=== PATIENT | female | born 1935 | race Caucasian/White ===

== ENCOUNTER 2018-09-08 22:56 | Inpatient (IN) ==
[2018-09-08 23:11] LABS: ABG Base Excess -4.7 mmol/L (-2.4-2.3); ABG HCO3 19.7 mmhg (22.0-26.0); ABG Oxygen Saturation 96 % (90-100); ABG PCO2 30.6 mmhg (35.0-45.0); ABG PH 7.43 mmol/L (7.35-7.45); ABG PO2 78.4 mmhg (80-100); ABG TCO2 20.6 mmhg (23-27)
[2018-09-08 23:12] LABS: Oxygen 21 %
[2018-09-08 23:13] LABS: Allen's Test Acceptable
[2018-09-08 23:17] LABS: Basophils # 0.1 K/mm3 (0-0.2); Basophils % 0.6 % (0.1-2.0); Eosinophils # 0.4 K/mm3 (0.0-0.4); Eosinophils % 2.7 % (0.1-12.0); Hematocrit 40.5 % (37.0-47.0); Hemoglobin 12.7 g/dL (12.2-16.2); Lymphocytes # 2.8 K/mm3 (0.7-4.5); Lymphocytes % 21.7 % (10-50); Mean Corpuscular HGB Conc 31.4 g/dL (31.8-35.4); Mean Corpuscular Hemoglobin 30.4 pg (27.0-31.2); Mean Platelet Volume 7.8 fl (7.4-10.4); Monocytes # 0.7 K/mm3 (0.1-1.0); Monocytes % 5.3 % (1.7-9.3); Neutrophils % 69.8 % (37.0-80.0); Platelet Count 234 K/mm3 (142-424); Red Blood Count 4.17 M/mm3 (4.20-5.40); Red Cell Distribution Width 15.8 % (11.5-17.5); White Blood Count 12.9 K/mm3 (4.8-10.8)
[2018-09-08 23:30] LABS: Alanine Aminotransferase 38 U/L (12-78); Albumin Level 3.2 gm/dL (3.4-5.0); Alkaline Phosphatase 87 U/L (46-116); Anion Gap 18.3 mEq/L (5-15); Aspartate Amino Transferase 34 U/L (15-37); Bilirubin,Direct 0.2 mg/dL (0.0-0.2); Bilirubin,Indirect 0.4 mg/dL (0.0-0.9); Bilirubin,Total 0.6 mg/dL (0.2-1.0); Blood Urea Nitrogen 19 mg/dL (7-18); C-Reactive Protein 2.6 mg/L (0.0-0.9); Calcium 8.7 mg/dL (8.5-10.1); Carbon Dioxide 20 mmol/L (21.0-32.0); Chloride 105 mmol/L (98-107); Glucose 160 mg/dL (74-106); Potassium 4.3 mmoL/L (3.5-5.1); Sodium 139 mmol/L (136-145); Total Protein,Serum 7.3 gm/dL (6.4-8.2)
[2018-09-08 23:41] LABS: Microscopic, Urine URINE MICROSCOPIC (MICROSCOPIC)
[2018-09-08 23:42] LABS: Appearance,Urine CLEAR (Clear); Bilirubin,Urine Negative (Negative); Blood, Urine Negative (Negative); Color,Urine YELLOW (Yellow); Glucose,Urine (UA) Negative (Negative); Ketones,Urine Negative (Negative); Leukocyte Esterase,Urine Negative (Negative); PH,Urine 5.5 (5.0-8.5); Protein,Urine Negative (Negative); Specific Gravity, Urine 1.015 (1.005-1.030); Urobilinogen,Urine 0.2 EU/dl (0.2)
[2018-09-08 23:54] LABS: Bacteria,Urine Trace /lpf; WBC,Urine Occasional #/hpf (0-3)
[2018-09-09 00:10] LABS: T4 (Thyroxine) 8.7 ug/dl (4.7-13.3); Thyroid Stimulating Hormone 0.83 uIU/ml (0.358-3.740)
[2018-09-09 00:56] LABS: INR 3.19 (0.9-1.1); Prothrombin Time 31.8 seconds (9.4-11.8)
[2018-09-09 01:28] LABS: Coronavirus 229E Not Detected (NotDetected); Coronavirus NL63 Not Detected (NotDetected); Coronavirus OC43 Not Detected (NotDetected); Coronovirus HKU1,PCR Not Detected (NotDetected)
--- NOTE | 2018-09-09 01:40 | Emergency Department Note ---
ED Disposition Clinical Impression: Atrial fibrillation with rapid ventricular response, Acute interstitial pneumonitis, Renal insufficiency, Obesity (BMI 30.0-34.9) Disposition: Admitted as Observation Condition on Discharge: Good - Critical Care Critical Care Time: No Attestation: On 09/08/18, the high probability of a clinically significant, sudden or life threatening deterioration of the following system(s) required my full and direct attention, intervention and personal management. The time I documented below is in addition to time spent performing reported procedures but includes the following listed in this critical care notation. Medical Decision Making - Medical Records Medical records reviewed: Yes: I reviewed the patient's medical records. - Anders Inquiry Pt receiving controlled substance: No Vital Signs: 09/08/18 22:57 09/08/18 23:04 09/08/18 23:26 Temperature 97.9 F Temperature Source Oral Pulse Rate [Right Brachial] 160 H 142 H 131 H Respiratory Rate 21 26 H 26 H Blood Pressure [Right Arm] 180/126 H 160/105 H 140/102 H Blood Pressure Mean [Right Arm] 144 123 114 02 Sat by Pulse Oximetry 94 L 92 L 98 Oxygen Delivery Method Room Air Room Air Nasal Cannula Oxygen Flow Rate (LPM) 2 09/08/18 23:49 09/09/18 00:30 09/09/18 01:07 Temperature Temperature Source Pulse Rate [Right Brachial] 122 H 93 H 91 H Respiratory Rate 16 23 21 Blood Pressure [Right Arm] 149/104 H 151/76 H 149/79 H Blood Pressure Mean [Right Arm] 119 101 102 02 Sat by Pulse Oximetry 96 95 95 Oxygen Delivery Method Nasal Cannula Nasal Cannula Nasal Cannula Oxygen Flow Rate (LPM) 2 2 2 09/09/18 01:14 Temperature Temperature Source Pulse Rate [Right Brachial] 88 Respiratory Rate 23 Blood Pressure [Right Arm] 148/75 H Blood Pressure Mean [Right Arm] 99 02 Sat by Pulse Oximetry 95 Oxygen Delivery Method Nasal Cannula Oxygen Flow Rate (LPM) 2 - Lab Data Lab results reviewed: Yes: I reviewed the patient's lab results. Lab Results 09/08/18 23:03: Specimen Source Left brachial, O2 % 21, ABG pH 7.43, ABG pCO2 30.6 L, ABG pO2 78.4 L, ABG HCO3 19.7 L, ABG Total CO2 20.6 L, ABG O2 Saturation 96, ABG Base Excess -4.7 L, Avtar Test Acceptable 09/08/18 23:05: WBC 12.9 H, RBC 4.17 L, Hgb 12.7, Hct 40.5, MCV 97.0, MCH 30.4, MCHC 31.4 L, RDW 15.8, Plt Count 234, MPV 7.8, Neut % (Auto) 69.8, Lymph % (Auto) 21.7, [place] % (Auto) 5.3, Eos % (Auto) 2.7, Baso % (Auto) 0.6, Neut # (Auto) 9.0 H, Lymph # (Auto) 2.8, [place] # (Auto) 0.7, Eos # (Auto) 0.4, Baso # (Auto) 0.1 09/08/18 23:05: Sodium 139, Potassium 4.3, Chloride 105, Carbon Dioxide 20 L, Anion Gap 18.3 H, BUN 19 H, Creatinine 1.72 H, Estimated Creat Clear 35, Estimated GFR 28 L, Est GFR ( Amer) 34 L, Glucose 160 H, Calcium 8.7, Total Bilirubin 0.6, Direct Bilirubin 0.2, Indirect Bilirubin 0.4, AST 34, ALT 38, Alkaline Phosphatase 87, Troponin I < 0.02, C-Reactive Protein 2.6 H, Total Protein 7.3, Albumin 3.2 L 09/08/18 23:05: ESR 40 H 09/08/18 23:05: TSH 0.83, Thyroxine (T4) 8.7 09/08/18 23:30: Urine Color Yellow, Urine Appearance Clear, Urine pH 5.5, Ur Specific Denn[place] 1.015, Urine Protein Negative, Urine Glucose (UA) Negative, Urine Ketones Negative, Urine Blood Negative, Urine Nitrate Negative, Urine Bilirubin Negative, Urine Urobilinogen 0.2, Ur Leukocyte Esterase Negative, Urine RBC None, Urine WBC Occasional, Ur Squamous Epith Cells 3-5, Urine Bacteria Trace 09/08/18 23:30: Influenza Type A Ag Negative, Influenza Type B Ag Negative 09/08/18 23:35: Lactate 3.3 H 09/09/18 00:00: PT 31.8 H, INR 3.19 H Result diagrams: 09/08/18 23:05 09/08/18 23:05 Orders (Tests/Meds): ED MEDICATIONS Generic Name Dose Route Start Last Admin Trade Name Nilesh PRN Reason Stop Dose Admin Diltiazem HCl 100 mg/ Sodium 100 mls @ 5 mls/hr 09/08/18 23:48 09/08/18 23:35 Chloride IV 10/08/18 23:47 Not Given .Q20H GABI Protocol Sodium Chloride 1,000 mls @ 250 mls/hr 09/08/18 23:45 09/08/18 23:35 Sod Chlor 0.9% 1000ml Bag IV 09/09/18 03:44 250 mls/hr .Q4H GABI Administration Ceftriaxone Sodium 1 gm/ 50 mls @ 100 mls/hr 09/09/18 01:15 09/09/18 01:26 Sodium Chloride IV 09/23/18 01:14 100 mls/hr Q24H GABI Administration Protocol Azithromycin 500 mg/ Sodium 250 mls @ 250 mls/hr 09/09/18 01:15 Chloride IV 09/23/18 01:14 Q24H GABI Protocol Levalbuterol HCl 1.25 mg 09/09/18 06:00 09/08/18 23:34 Xopenex 1.25mg/3ml Neb IH 10/09/18 05:59 1.25 mg TIDRT GABI Administration Discontinued Medications Generic Name Dose Route Start Last Admin Trade Name Nilesh PRN Reason Stop Dose Admin Diltiazem HCl 10 mg 09/08/18 23:32 09/08/18 23:34 Cardizem 25mg/5ml Vial IV 09/08/18 23:33 10 mg ONCE ONE Administration Diltiazem HCl 100 mg 09/08/18 23:32 09/08/18 23:34 Cardizem 125mg/25ml Vial IV 09/08/18 23:33 100 mg ONCE ONE Administration Protocol Furosemide 40 mg 09/09/18 01:16 09/09/18 01:26 Lasix 40mg/4ml Vial IV 09/09/18 01:17 40 mg ONCE ONE Administration Methylprednisolone Sodium Succinate 125 mg 09/08/18 23:03 09/08/18 23:33 Solu-Medrol 125mg/2ml Vial IV 09/08/18 23:04 125 mg ONCE ONE Administration ORDERS Category Date Time Status CT chest wo con Stat Cat Scan 09/09/18 00:[address] soft tissue neck wo con Stat Cat Scan 09/08/18 23:45 Taken XR chest portable Stat Exams 09/08/18 23:03 Taken Upper Respiratory Panel, PCR Stat Lab 09/09/18 01:15 Received Urinalysis and Microscopic Stat Lab 09/08/18 23:30 Ordered Blood Culture Stat Micro 09/08/18 23:35 Received Arterial Blood Gas Stat RT 09/08/18 23:03 Ordered 12-lead EKG Request [ECG Request by /Rachele] Stat Y 09/09/18 00:06 Ordered - Radiology Data #1 Image(s): Chest Image Reviewed: Yes I reviewed the patient's radiology image Preliminary Findings: Abnormal (nonspecific) - CT Data CT Scan: Chest, Other (neck ) Time Received: 01:[address] Reviewed: Yes: I have viewed the radiologist's interpretation Preliminary Findings: Abnormal (see report ) - Physician Consults Physician Consulted: antonio Reason -: Admission Resp/SOB HPI - General Chief Complaint: Shortness of Breath/Dyspnea Stated Complaint: shortness of iar Time Seen by Provider: 09/08/18 23:15 Mode of Arrival: EMS Source of Information: Patient, Relative, EMS ( ), Medical Record Limitations: No Limitations Description of Symptoms (Recalled from ER Triage Doc. by RN): Brought in by EMS for Shortness of air, tachycardia, and trouble swallowing. Pt with labored breathing at this time, hoarse, and gets very winded with speaking. - History of Present Illness wf with tickle in throat earlier which progressed to dysphonia and wheezing - no chest pain and was brought by ems and was noted to have a fib with fast rate - MD Complaint: shortness of breath Onset (ago): hour(s) Severity: moderate Known history of: other (hx of a fib ) Associated symptoms: other Treatment prior to arrival: oxygen, bronchodilator - Related Data Home oxygen amount: none Home Medications Medication Instructions Recorded Confirmed Allopurinol [Allopurinol 300mg 150 mg PO DAILY 09/08/18 09/08/18 tablet] Furosemide [Furosemide 20mg Tab] 20 mg PO DAILY 09/08/18 09/08/18 Irbesartan 150 mg PO DAILY 09/08/18 09/08/18 Levothyroxine Sodium 100 mg PO DAILY 09/08/18 09/08/18 [Levothyroxine 100mcg (0.1MG) Tab] Linagliptin/Metformin HCl 1 each PO BID 09/08/18 09/08/18 [Jentadueto 2.5 mg-1000 mg Tab] Metoprolol Tartrate 50 mg PO BID 09/08/18 09/08/18 Omeprazole [Omeprazole 40mg 40 mg PO DAILY 09/08/18 09/08/18 Capsule] Warfarin Sodium 2.5 mg PO DAILY 09/08/18 09/08/18 Allergies Allergy/AdvReac Type Severity Reaction Status Date / Time albuterol Allergy Severe Swelling Verified 09/08/18 23:37 of Lip/Tongue/Throat erythromycin base Allergy Severe Swelling Verified 09/08/18 23:37 of Lip/Tongue/Throat Penicillin Allergy Severe Swelling Uncoded 09/08/18 23:37 of Lip/Tongue/Throat [facility] History - Hepatitis A Screen Drug use history?: No High risk sexual behaviors?: No History of sexually transmitted infection?: No Currently employed?: No Childcare worker?: No Do you have indoor plumbing?: Yes Do you have electricity?: Yes Attestation statement:: This patient has been screened for Hepatitis A risk factors. I have reviewed the patient's past medical history: Yes Medical History: Reports:: Diabetes Mellitus Type 2 - Social History Alcohol Intake: never - Psychiatric History Expresses thoughts of harming self/others: None Suicide Plan Description: No Plan ROS Obtained: Yes All systems reviewed & no additional complaints - Constitutional Constitutional: Denies fever(s) - Eyes Eyes: Denies change in vision - ENT Ears, Nose, Mouth, and Throat: Reports as per HPI, Denies lip swelling, Denies sore throat - Cardiovascular Cardiovascular: Reports dyspnea, Reports rapid heart rate - Respiratory Respiratory: Yes cough, Yes dyspnea, No coughing up blood - Gastrointestinal Gastrointestingal: Denies: abdominal pain - Genitourinary Female Genitourinary: Denies abnormal vaginal bleeding - Musculoskeletal Musculoskeletal: Denies joint pain, Denies joint swelling - Integumentary/Breasts Skin/Breast: Denies rash - Neurologic Neurologic: Denies headache(s), Denies seizure-like activity Physical Exam - General General appearance: alert, obese - Head Head exam: normocephalic - Eye Eye exam: Present: PERRL, EOMI. Absent: scleral icterus - ENT ENT exam: Present: normal oropharynx, mucous membranes dry - Neck Neck exam: Absent: trachea midline - Respiratory Respiratory exam: Present: wheezes. Absent: respiratory distress - Cardiovascular Cardiovascular exam: Present: irregular rhythm, systolic murmur - Abdominal Exam Abdominal exam: Present: soft - Extremities Exam Extremities exam: Absent: tenderness, calf tenderness - Neurological Exam Neurological exam: Present: alert, oriented X3, CN II-XII intact - Psychiatric Psychiatric exam: Present: anxious - Skin Skin exam: Absent: rash
[2018-09-09 04:45] LABS: Basophils % 0.2 % (0.1-2.0); Eosinophils % 0.2 % (0.1-12.0); Hematocrit 38.9 % (37.0-47.0); Hemoglobin 12.2 g/dL (12.2-16.2); Lymphocytes # 0.6 K/mm3 (0.7-4.5); Lymphocytes % 5.2 % (10-50); Mean Corpuscular HGB Conc 31.3 g/dL (31.8-35.4); Mean Corpuscular Hemoglobin 30.6 pg (27.0-31.2); Mean Corpuscular Volume 97.8 fl (81-99); Mean Platelet Volume 7.6 fl (7.4-10.4); Monocytes # 0.2 K/mm3 (0.1-1.0); Monocytes % 1.8 % (1.7-9.3); Neutrophils # 10.9 K/mm3 (1.8-7.8); Neutrophils % 92.6 % (37.0-80.0); Platelet Count 194 K/mm3 (142-424); Red Blood Count 3.98 M/mm3 (4.20-5.40); Red Cell Distribution Width 15.8 % (11.5-17.5); White Blood Count 11.8 K/mm3 (4.8-10.8)
[2018-09-09 04:46] LABS: INR 3.81 (0.9-1.1); Prothrombin Time 37.8 seconds (9.4-11.8)
[2018-09-09 04:51] LABS: Calcium 8.5 mg/dL (8.5-10.1); Chol/HDL Ratio 3.4 (1-3.5)
[2018-09-09 06:22] LABS: Anisocytosis 1+; Lymphocytes % 2 % (10-50); Neutrophils % 98 % (42-76); Stomatocytes 1+; Total Cells Counted 100
--- NOTE | 2018-09-09 07:31 | Pharmacy Consult Notes ---
[facility] Pharmacy VTE Monitoring - Patient Demographics Admission date: 09/09/18 Report Date: 09/09/18 Time: 07:31 Allergies/Adverse Reactions: Patient Allergies albuterol Allergy (Severe, Verified 09/08/18 23:37) Swelling of Lip/Tongue/Throat erythromycin base Allergy (Severe, Verified 09/08/18 23:37) Swelling of Lip/Tongue/Throat Penicillin Allergy (Severe, Uncoded 09/08/18 23:37) Swelling of Lip/Tongue/Throat Height: 1.6 m Weight: 89.499 kg Patient Problems: Current Active Problems Atrial fibrillation with rapid ventricular response (Acute) Acute interstitial pneumonitis (Acute) Renal insufficiency (Acute) Obesity (BMI 30.0-34.9) (Acute) - VTE Risk Labs: VTE Related Lab Results Hgb 12.2 g/dL (12.2-16.2) 09/09/18 04:15 Hct 38.9 % (37.0-47.0) 09/09/18 04:15 Plt Count 194 K/mm3 (142-424) 09/09/18 04:15 PT 37.8 seconds (9.4-11.8) H 09/09/18 04:15 INR 3.81 (0.9-1.1) H 09/09/18 04:15 BUN 20 mg/dL (7-18) H 09/09/18 04:15 Creatinine 1.77 mg/dL (0.55-1.02) H 09/09/18 04:15 Estimated Creat Clear 34 mL/min (50-200) 09/09/18 04:15 Was VTE Risk Assessment Performed: Yes VTE Score: 6 VTE Risk Level: Moderate Risk - Prophylaxis VTE Prophylaxis Ordered?: Yes Types of VTE Prophylaxis: Pharmacological Pharmacologic Type: Warfarin - VTE Diagnosis Confirmed Treatment or plan recommended: Continue Current Treatment
--- NOTE | 2018-09-09 08:10 | Consult Report ---
History of Present Illness Consult date: 09/09/18 Requesting physician: Gordo Phillips Consult reason: shortness of breath Chief complaint: SOA Additional Medical History:: 1. Diabetes mellitus, treated for about 9 years 2. Hypertension 3. Hypothyroidism, on replacement therapy 4. Hyperlipidemia 5. History of gout and arthritis 6. History of atrial fibrillation remotely several years ago for which she has been on chronic Coumadin therapy since then History of present illness: 82-year-old white female with the above medical history presented to the emergency room for increasing shortness of breath and loss of voice. Patient relates rather sudden onset of shortness of breath with some difficulty talking and gradually progressed. Patient denies any chest pain, pressure or tightness. She had been in her normal state of health earlier that day doing her normal activities. She denies any new food choices. In the ER patient was found to be in atrial fibrillation with a rapid ventricular response and started on IV diltiazem. Patient was also started on pulmonary treatment with significant improvement overnight. Patient is wanting to go home today. Cardiology consulted for atrial fibrillation. Patient states she has been on Coumadin therapy several years without interruption. Current heart rate between 80-100 at rest with quick rise to 150's with minimal movement. She is on Diltiazem at 15 ml/hr currently. Coronary artery calcification noted on chest CT. Pt denies chest pains but with cardiac risk factors she will need further workup once pulmonary status improved. [facility] History Medical History: Reports:: Arrhythmia, Atrial Fibrillation, Diabetes Mellitus Type 2, Hyperlipidemia, Hypertension Laterality Cases: Right: ACL Repair, Bilateral: Cataract Other Surgeries: Yes: Tubal Ligation - *Social History Educational Level: Completed High School Alcohol Intake: never Occupational Status: retired Housing: apartment Household Members: none - Psychiatric History Expresses thoughts of harming self/others: None Suicide Plan Description: No Plan *Family Hx:: Asthma, Cancer, Coronary Artery Disease, Heart Attack Meds Home Medications Medication Instructions Recorded Confirmed Type Allopurinol [Allopurinol 300mg 150 mg PO DAILY 09/08/18 09/09/18 History tablet] Furosemide [Furosemide 20mg Tab] 20 mg PO DAILY 09/08/18 09/09/18 History Irbesartan 150 mg PO DAILY 09/08/18 09/09/18 History Levothyroxine Sodium 100 mcg PO DAILY 09/08/18 09/09/18 History [Levothyroxine 100mcg (0.1MG) Tab] Linagliptin/Metformin HCl 1 each PO BID 09/08/18 09/09/18 History [Jentadueto 2.5 mg-1000 mg Tab] Metoprolol Tartrate 50 mg PO BID 09/08/18 09/09/18 History Omeprazole [Omeprazole 40mg 40 mg PO DAILY 09/08/18 09/09/18 History Capsule] Warfarin Sodium 2.5 mg PO DAILY 09/08/18 09/09/18 History Allergies Allergy/AdvReac Type Severity Reaction Status Date / Time albuterol Allergy Severe Swelling Verified 09/08/18 23:37 of Lip/Tongue/Throat erythromycin base Allergy Severe Swelling Verified 09/08/18 23:37 of Lip/Tongue/Throat Penicillins Allergy Severe Swelling Verified 09/09/18 07:49 of Lip/Tongue/Throat Review of Systems - *Cardiovascular Reports shortness of breath, Reports fast heart rate, Denies chest pain - *Respiratory Reports shortness of breath - *Gastrointestinal Denies abdominal pain, Denies loose stools - *Genitourinary Denies difficulty urinating, Denies blood in urine - *Musculoskeletal Reports joint pain - *Neurologic Denies headache(s), Denies seizure-like activity Exam Vital signs and Labs for Last 24 Hours: Temp Pulse Resp BP Pulse Ox 98.3 F 72 24 137/81 98 09/09/18 04:00 09/09/18 07:26 09/09/18 06:00 09/09/18 06:00 09/09/18 07:26 Laboratory Results - last 24 hr 09/08/18 23:03: Specimen Source Left brachial, O2 % 21, ABG pH 7.43, ABG pCO2 30.6 L, ABG pO2 78.4 L, ABG HCO3 19.7 L, ABG Total CO2 20.6 L, ABG O2 Saturation 96, ABG Base Excess -4.7 L, Avtar Test Acceptable 09/08/18 23:05: WBC 12.9 H, RBC 4.17 L, Hgb 12.7, Hct 40.5, MCV 97.0, MCH 30.4, MCHC 31.4 L, RDW 15.8, Plt Count 234, MPV 7.8, Neut % (Auto) 69.8, Lymph % (Auto) 21.7, [place] % (Auto) 5.3, Eos % (Auto) 2.7, Baso % (Auto) 0.6, Neut # (Auto) 9.0 H, Lymph # (Auto) 2.8, [place]ton # (Auto) 0.7, Eos # (Auto) 0.4, Baso # (Auto) 0.1 09/08/18 23:05: Sodium 139, Potassium 4.3, Chloride 105, Carbon Dioxide 20 L, Anion Gap 18.3 H, BUN 19 H, Creatinine 1.72 H, Estimated Creat Clear 35, Estimated GFR 28 L, Est GFR ( Amer) 34 L, Glucose 160 H, Calcium 8.7, Total Bilirubin 0.6, Direct Bilirubin 0.2, Indirect Bilirubin 0.4, AST 34, ALT 38, Alkaline Phosphatase 87, Troponin I < 0.02, C-Reactive Protein 2.6 H, Total Protein 7.3, Albumin 3.2 L 09/08/18 23:05: ESR 40 H 09/08/18 23:05: TSH 0.83, Thyroxine (T4) 8.7 09/08/18 23:30: Urine Color Yellow, Urine Appearance Clear, Urine pH 5.5, Ur Specific Shiner 1.015, Urine Protein Negative, Urine Glucose (UA) Negative, Urine Ketones Negative, Urine Blood Negative, Urine Nitrate Negative, Urine Bilirubin Negative, Urine Urobilinogen 0.2, Ur Leukocyte Esterase Negative, Urine RBC None, Urine WBC Occasional, Ur Squamous Epith Cells 3-5, Urine Bacteria Trace 09/08/18 23:30: Influenza Type A Ag Negative, Influenza Type B Ag Negative 09/08/18 23:35: Lactate 3.3 H 09/09/18 00:00: PT 31.8 H, INR 3.19 H 09/09/18 00:00: B-Natriuretic Peptide 394 H 09/09/18 01:15: Chlamy pneumoniae PCR Not detected, Adenovirus (PCR) Not detected, B. pertussis DNA (PCR) Not detected, Coronavirus OC43 (PCR) Not detected, Coronavirus HKU1 (PCR) Not detected, Coronavirus 229E (PCR) Not detected, Coronavirus NL63 (PCR) Not detected, Human Metapneumovir PCR Not detected, Influenza A (H1) PCR Not detected, Influ A (H1N1/09) PCR Not detected, Influenza A (H3) PCR Not detected, Influenza Type A (PCR) Not detected, Influenza Type B (PCR) Not detected, M. pneumoniae (PCR) Not detected, Parainfluenza 1 (PCR) Not detected, Parainfluenza 2 (PCR) Not detected, Parainfluenza 3 (PCR) Not detected, Parainfluenza 4 (PCR) Not detected, RSV (PCR) Not detected, Entero/Rhino (PCR) Not detected 09/09/18 04:15: Troponin I < 0.02 09/09/18 04:15: WBC 11.8 H, RBC 3.98 L, Hgb 12.2, Hct 38.9, MCV 97.8, MCH 30.6, MCHC 31.3 L, RDW 15.8, Plt Count 194, MPV 7.6, Neut % (Auto) 92.6 H, Lymph % (Auto) 5.2 L, Charlton % (Auto) 1.8, Eos % (Auto) 0.2, Baso % (Auto) 0.2, Neut # (Auto) 10.9 H, Lymph # (Auto) 0.6 L, Charlton # (Auto) 0.2, Eos # (Auto) 0.0, Baso # (Auto) 0.0, Total Counted 100, Neutrophils % (Manual) 98 H, Lymphocytes % (Manual) 2 L, Platelet Estimate Normal, Anisocytosis 1+, Stomatocytes 1+ 09/09/18 04:15: PT 37.8 H, INR 3.81 H 09/09/18 04:15: Sodium 138, Potassium 4.0, Chloride 104, Carbon Dioxide 20 L, Anion Gap 18.0 H, BUN 20 H, Creatinine 1.77 H, Estimated Creat Clear 34, Estimated GFR 27 L, Est GFR ( Amer) 33 L, Glucose 234 H D, Calcium 8.5, Magnesium 1.0 L, Triglycerides 89, Cholesterol 176, LDL Cholesterol 106, VLDL Cholesterol 18, HDL Cholesterol 52, Cholesterol/HDL Ratio 3.4 09/09/18 04:15: Lactate 2.8 H 09/09/18 05:58: POC Glucose 221 H 09/09/18 06:30: Lactate 3.7 H I & O for Last 24 hours: Intake & Output 09/06/18 09/07/18 09/08/18 12/21/18 11:59 11:59 11:59 11:59 Intake Total 620 / 620 Output Total 1000 / 1000 Balance -380 / -380 Weight 197 lb 5 oz Microbiology Reports for the Last 24 Hours: Microbiology 09/09/18 04:30 Sputum - Expectorated Sputum Gram Stain - Final - *Routine Neck Exam Present: supple. Absent: JVD, carotid bruit - *Routine Respiratory Exam Present: rhonchi, wheezes. Absent: accessory muscle use, rales - *Routine Cardiovascular Exam Present: tachycardia, irregularly irregular. Absent: murmur, gallop, rubs - *Routine Abdominal Exam Present: soft. Absent: tenderness, distended, guarding - *Routine Extremities Exam Absent: edema, calf tenderness - *Routine Neurological Exam Present: alert, oriented X3, moving all extremities Assessment and Plan (1) Acute interstitial pneumonitis Current visit: Yes Status: Acute Category: Medical Code(s): J84.114 - Acute interstitial pneumonitis (2) Atrial fibrillation with rapid ventricular response Current visit: Yes Status: Acute Category: Medical Code(s): I48.91 - Unspecified atrial fibrillation (3) Diabetes mellitus Current visit: Yes Status: Acute Category: Medical Code(s): E11.9 - Type 2 diabetes mellitus without complications (4) Obesity (BMI 30.0-34.9) Current visit: Yes Status: Chronic Category: Medical Code(s): E66.9 - Obesity, unspecified (5) Renal insufficiency Current visit: Yes Status: Acute Category: Medical Code(s): N28.9 - Dis order of kidney and ureter, unspecified - Assessment and plan all Dx Assessment and Plan for all problems:: 1. We will give a one-time dose of digoxin 0.25 mg IV 2. We will start bisoprolol 10 mg up to twice daily for rate control in place of metoprolol. 3. We will hold irbesartan to allow for more beta-melony therapy but resume for BP control as needed. 4. Continue diltiazem and wean as needed 5. If the above therapy is not adequate for rate control then would consider cardioversion after pulmonary status has improved. Patient has eaten breakfast this morning. 6. Echocardiogram has been performed with preliminary interpretation showing preserved ejection fraction with moderate MR. 7. Suggest outpatient lexiscan or stress myoview when pulmonary status improved.
--- NOTE | 2018-09-09 08:27 | History & Physical Report ---
*Admission Date: 09/09/18 *Chief complaint: Shortness of air/cough *History of present illness: 82-year-old white female with history of hypertension, history of chronic atrial fibrillation on long-term warfarin therapy who I saw Wednesday in my office in [place] for regular checkup who was doing very nicely, with normal lung examination but reported that 2 days ago she began to have wheezing and shortness of air suddenly. Came to the emergency department, workup ensued which revealed evidence of significant bronchitis, mild hypoxia and some tachycardia. Patient was admitted for further evaluation. This morning she feels better but continues to have slightly rapid heart rate. [facility] History I have reviewed the patient's past medical history: Yes Medical History: Reports:: Arrhythmia, Atrial Fibrillation, Diabetes Mellitus Type 2, Hyperlipidemia, Hypertension Laterality Cases: Right: ACL Repair, Bilateral: Cataract Other Surgeries: Yes: Tubal Ligation - *Social History Educational Level: Completed High School Alcohol Intake: never Occupational Status: retired Housing: apartment Household Members: none - Psychiatric History Expresses thoughts of harming self/others: None Suicide Plan Description: No Plan *Family Hx:: Asthma, Cancer, Coronary Artery Disease, Heart Attack Review of Systems - Review of Systems Review of systems:: pertinent systems reviewed and negative unless documented below - Constitutional Reports fever(s), Denies anorexia, Denies body ache(s), Denies chills - Eyes Denies blind spots, Denies blurry vision, Denies bulging eyes - ENT Denies abnormal hearing, Denies bleeding gums, Denies change in voice - *Cardiovascular Reports shortness of breath, Reports shortness of breath with activity, Reports irregular heart rhythm, Denies chest pain, Denies chest pain at rest, Denies rapid, pounding, or irregular heartbeat - *Respiratory Reports change in phlegm color, Reports chest congestion, Reports cough, Reports shortness of breath - *Gastrointestinal Denies abdominal pain, Denies coffee ground vomit, Denies constipation - *Musculoskeletal Denies abnormal walking - Integumentary/Breasts Denies acne, Denies bleeding lesions, Denies change in hair - *Neurologic Denies headache(s), Denies seizure-like activity - Psychiatric Denies abnormal sleep pattern Meds Home Medications Medication Instructions Recorded Confirmed Type Allopurinol [Allopurinol 300mg 150 mg PO DAILY 09/08/18 09/09/18 History tablet] Furosemide [Furosemide 20mg Tab] 20 mg PO DAILY 09/08/18 09/09/18 History Irbesartan 150 mg PO DAILY 09/08/18 09/09/18 History Levothyroxine Sodium 100 mg PO DAILY 09/08/18 09/09/18 History [Levothyroxine 100mcg (0.1MG) Tab] Linagliptin/Metformin HCl 1 each PO BID 09/08/18 09/09/18 History [Jentadueto 2.5 mg-1000 mg Tab] Metoprolol Tartrate 50 mg PO BID 09/08/18 09/09/18 History Omeprazole [Omeprazole 40mg 40 mg PO DAILY 09/08/18 09/09/18 History Capsule] Warfarin Sodium 2.5 mg PO DAILY 09/08/18 09/09/18 History Allergies Allergy/AdvReac Type Severity Reaction Status Date / Time albuterol Allergy Severe Swelling Verified 09/08/18 23:37 of Lip/Tongue/Throat erythromycin base Allergy Severe Swelling Verified 09/08/18 23:37 of Lip/Tongue/Throat Penicillins Allergy Severe Swelling Verified 09/09/18 07:49 of Lip/Tongue/Throat Exam Vital signs and Labs for Last 24 Hours: Temp Pulse Resp BP Pulse Ox 98.3 F 72 24 137/81 98 09/09/18 04:00 09/09/18 07:26 09/09/18 06:00 09/09/18 06:00 09/09/18 07:26 Laboratory Results - last 24 hr 09/08/18 23:03: Specimen Source Left brachial, O2 % 21, ABG pH 7.43, ABG pCO2 30.6 L, ABG pO2 78.4 L, ABG HCO3 19.7 L, ABG Total CO2 20.6 L, ABG O2 Saturation 96, ABG Base Excess -4.7 L, [place] Test Acceptable 09/08/18 23:05: WBC 12.9 H, RBC 4.17 L, Hgb 12.7, Hct 40.5, MCV 97.0, MCH 30.4, MCHC 31.4 L, RDW 15.8, Plt Count 234, MPV 7.8, Neut % (Auto) 69.8, Lymph % (Auto) 21.7, [place] % (Auto) 5.3, Eos % (Auto) 2.7, Baso % (Auto) 0.6, Neut # (Auto) 9.0 H, Lymph # (Auto) 2.8, [place] # (Auto) 0.7, Eos # (Auto) 0.4, Baso # (Auto) 0.1 09/08/18 23:05: Sodium 139, Potassium 4.3, Chloride 105, Carbon Dioxide 20 L, Anion Gap 18.3 H, BUN 19 H, Creatinine 1.72 H, Estimated Creat Clear 35, Estimated GFR 28 L, Est GFR ( Amer) 34 L, Glucose 160 H, Calcium 8.7, Total Bilirubin 0.6, Direct Bilirubin 0.2, Indirect Bilirubin 0.4, AST 34, ALT 38, Alkaline Phosphatase 87, Troponin I < 0.02, C-Reactive Protein 2.6 H, Total Protein 7.3, Albumin 3.2 L 09/08/18 23:05: ESR 40 H 09/08/18 23:05: TSH 0.83, Thyroxine (T4) 8.7 09/08/18 23:30: Urine Color Yellow, Urine Appearance Clear, Urine pH 5.5, Ur Specific [place] 1.015, Urine Protein Negative, Urine Glucose (UA) Negative, Urine Ketones Negative, Urine Blood Negative, Urine Nitrate Negative, Urine Bilirubin Negative, Urine Urobilinogen 0.2, Ur Leukocyte Esterase Negative, Urine RBC None, Urine WBC Occasional, Ur Squamous Epith Cells 3-5, Urine Aleksey teria Trace 09/08/18 23:30: Influenza Type A Ag Negative, Influenza Type B Ag Negative 09/08/18 23:35: Lactate 3.3 H 09/09/18 00:00: PT 31.8 H, INR 3.19 H 09/09/18 00:00: B-Natriuretic Peptide 394 H 09/09/18 01:15: Chlamy pneumoniae PCR Not detected, Adenovirus (PCR) Not detected, B. pertussis DNA (PCR) Not detected, Coronavirus OC43 (PCR) Not detected, Coronavirus HKU1 (PCR) Not detected, Coronavirus 229E (PCR) Not detected, Coronavirus NL63 (PCR) Not detected, Human Metapneumovir PCR Not detected, Influenza A (H1) PCR Not detected, Influ A (H1N1/09) PCR Not detected, Influenza A (H3) PCR Not detected, Influenza Type A (PCR) Not detected, Influenza Type B (PCR) Not detected, M. pneumoniae (PCR) Not detected, Parain fluenza 1 (PCR) Not detected, Parainfluenza 2 (PCR) Not detected, Parainfluenza 3 (PCR) Not detected, Parainfluenza 4 (PCR) Not detected, RSV (PCR) Not detected, Entero/Rhino (PCR) Not detected 09/09/18 04:15: Troponin I < 0.02 09/09/18 04:15: WBC 11.8 H, RBC 3.98 L, Hgb 12.2, Hct 38.9, MCV 97.8, MCH 30.6, MCHC 31.3 L, RDW 15.8, Plt Count 194, MPV 7.6, Neut % (Auto) 92.6 H, Lymph % (Auto) 5.2 L, [place] % (Auto) 1.8, Eos % (Auto) 0.2, Baso % (Auto) 0.2, Neut # (Auto) 10.9 H, Lymph # (Auto) 0.6 L, [place] # (Auto) 0.2, Eos # (Auto) 0.0, Baso # (Auto) 0.0, Total Counted 100, Neutrophils % (Manual) 98 H, Lymphocytes % (Manual) 2 L, Platelet Estimate Normal, Anisocytosis 1+, Stomatocytes 1+ 09/09/18 04:15: PT 37.8 H, INR 3.81 H 09/09/18 04:15: Sodium 138, Potassium 4.0, Chloride 104, Carbon Dioxide 20 L, Anion Gap 18.0 H, BUN 20 H, Creatinine 1.77 H, Estimated Creat Clear 34, Estimated GFR 27 L, Est GFR ( Amer) 33 L, Glucose 234 H D, Calcium 8.5, Magnesium 1.0 L, Triglycerides 89, Cholesterol 176, LDL Cholesterol 106, VLDL Cholesterol 18, HDL Cholesterol 52, Cholesterol/HDL Ratio 3.4 09/09/18 04:15: Lactate 2.8 H 09/09/18 05:58: POC Glucose 221 H 09/09/18 06:30: Lactate 3.7 H I & O for Last 24 hours: Intake & Output 12/18/18 12/19/18 12/20/18 12/21/18 11:59 11:59 11:59 11:59 Intake Total 860 / 860 Output Total 1000 / 1000 Balance -140 / -140 Weight 197 lb 5 oz Microbiology Reports for the Last 24 Hours: Microbiology 09/09/18 04:30 Sputum - Expectorated Sputum Gram Stain - Final Narrative: Patient is very pleasant. Talkative, alert, oriented x3. Morbid obesity noted but at baseline. Heart rate on my examination is currently in the 120s, but of note about 20 minutes later dropped into the 80s but still in atrial fibrillation. Lungs have some wheezing and expiratory crackles in the left lower field, right side has some loose rhonchi. Air movement is symmetric and she has no tracheal deviation. No clubbing, no cyanosis, no edema. Abdomen soft and nontender. Neurologic exam nonfocal. Assessment and Plan (1) Acute interstitial pneumonitis Current visit: Yes Status: Acute Category: Medical Code(s): J84.114 - Acute interstitial pneumonitis PCR was negative, but probably viral given the speed of her illness. She seems to be better already. We will continue supportive care. (2) Atrial fibrillation with rapid ventricular response Current visit: Yes Status: Acute Category: Medical Code(s): I48.91 - Unspecified atrial fibrillation Probably from lung disease.. cards consult evaluation pending. (3) Diabetes mellitus Current visit: Yes Status: Acute Category: Medical Code(s): E11.9 - Type 2 diabetes mellitus without complications Plan will be to watch glucose carefully in hospital. Sliding scale insulin as noted. (4) Obesity (BMI 30.0-34.9) Current visit: Yes Status: Chronic Category: Medical Code(s): E66.9 - Obesity, unspecified Chronic, complicates all aspects of her care. (5) Renal insufficiency Current visit: Yes Status: Acute Category: Medical Code(s): N28.9 - Disorder of kidney and ureter, unspecified Mild acute on chronic. Follow labs tomorrow
[2018-09-10 06:07] LABS: INR 3.24 (0.9-1.1); Prothrombin Time 32.3 seconds (9.4-11.8)
[2018-09-10 06:13] LABS: Basophils % 0.1 % (0.1-2.0); Hematocrit 33.9 % (37.0-47.0); Hemoglobin 11.5 g/dL (12.2-16.2); Lymphocytes # 2.3 K/mm3 (0.7-4.5); Mean Corpuscular HGB Conc 33.9 g/dL (31.8-35.4); Mean Corpuscular Hemoglobin 33.2 pg (27.0-31.2); Mean Corpuscular Volume 97.8 fl (81-99); Mean Platelet Volume 7.8 fl (7.4-10.4); Monocytes # 0.6 K/mm3 (0.1-1.0); Monocytes % 2.8 % (1.7-9.3); Neutrophils # 17.7 K/mm3 (1.8-7.8); Neutrophils % 85.9 % (37.0-80.0); Platelet Count 237 K/mm3 (142-424); Red Blood Count 3.47 M/mm3 (4.20-5.40); Red Cell Distribution Width 15.9 % (11.5-17.5)
[2018-09-10 06:14] LABS: Albumin Level 3.2 gm/dL (3.4-5.0); Albumin/Globulin Ratio 0.8 (1.1-1.8); Anion Gap 18.6 mEq/L (5-15); Bilirubin,Total 0.4 mg/dL (0.2-1.0); Calcium 8.4 mg/dL (8.5-10.1); Potassium 4.6 mmoL/L (3.5-5.1); Total Protein,Serum 7.2 gm/dL (6.4-8.2); White Blood Count 20.5 K/mm3 (4.8-10.8)
[2018-09-10 07:42] LABS: Lymphocytes % 9 % (10-50); Monocytes % 3 % (2-9); Neutrophils % 84 % (42-76); Total Cells Counted 100
[2018-09-10 07:44] LABS: Stomatocytes 1+
--- NOTE | 2018-09-10 08:35 | Progress Note ---
Internal Medicine - PN: Subj *Date: 09/10/18 *Time: 08:33 Interval history: Patient tolerated oral Cardizem through the night, and did not have significant heart rate elevation other than after her nebulizer treatments. Resting heart rate have been noted to be in the 80s-90s in atrial fibrillation. She feels better in regards to breathing. Exam Vital signs and Labs for Last 24 Hours: Temp Pulse Resp BP Pulse Ox 97.6 F 144 H 17 99/77 L 95 09/09/18 20:00 09/10/18 06:51 09/09/18 20:00 09/10/18 06:00 09/10/18 06:50 Laboratory Results - last 24 hr 09/09/18 08:28: Troponin I < 0.02 09/09/18 11:15: POC Glucose 243 H 09/09/18 16:55: POC Glucose 204 H 09/09/18 19:42: POC Glucose 205 H 09/10/18 05:07: POC Glucose 160 H 09/10/18 05:35: WBC 20.5 H* D, RBC 3.47 L, Hgb 11.5 L, Hct 33.9 L, MCV 97.8, MCH 33.2 H, MCHC 33.9, RDW 15.9, Plt Count 237, MPV 7.8, Neut % (Auto) 85.9 H, Lymph % (Auto) 11.0, [place] % (Auto) 2.8, Eos % (Auto) 0.0 L, Baso % (Auto) 0.1, Neut # (Auto) 17.7 H, Lymph # (Auto) 2.3, [place] # (Auto) 0.6, Eos # (Auto) 0.0, Baso # (Auto) 0.0, Total Counted 100, Neutrophils % (Manual) 84 H, Band Neutrophils % 3.0, Lymphocytes % (Manual) 9 L, Atypical Lymphs % 1.0, Monocytes % (Manual) 3, Platelet Estimate Normal, Stomatocytes 1+ 09/10/18 05:35: PT 32.3 H, INR 3.24 H 09/10/18 05:35: Sodium 138, Potassium 4.6, Chloride 102, Carbon Dioxide 22, Anion Gap 18.6 H, BUN 33 H D, Creatinine 2.20 H D, Estimated Creat Clear 27, Estimated GFR 21 L, Est GFR ( Amer) 26 L D, Glucose 171 H, Calcium 8.4 L, Total Bilirubin 0.4, AST 27, ALT 46, Alkaline Phosphatase 71, Total Protein 7.2, Albumin 3.2 L, Globulin 4.0 H, Albumin/Globulin Ratio 0.8 L I & O for Last 24 hours: Intake & Output 09/07/18 09/08/18 09/09/18 09/10/18 11:59 11:59 11:59 11:59 Intake Total 860 / 860 212 / 212 Output Total 1600 / 1600 600 / 600 Balance -740 / -740 1522 / 1522 Weight 197 lb 5 oz 200 lb Microbiology Reports for the Last 24 Hours: Microbiology 09/09/18 04:30 Sputum - Expectorated Sputum Gram Stain - Final 09/09/18 04:30 Sputum - Expectorated Sputum Sputum Culture - Preliminary Narrative: Patient is pleasant. Talkative. Oropharynx is clear. No JVD Heart rate 85 or so in atrial fibrillation. Lungs have better air entry. Minimal wheezing and expiratory phases. No clubbing. Minimal edema. At baseline. Abdomen soft and nontender. Assessment and Plan (1) Acute interstitial pneumonitis Current visit: Yes Status: Acute Category: Medical Code(s): J84.114 - Acute interstitial pneumonitis Improving. Probable viral disease. Continue low-dose prednisone. (2) Atrial fibrillation with rapid ventricular response Current visit: Yes Status: Acute Category: Medical Code(s): I48.91 - Unspecified atrial fibrillation Much more stable on oral Cardizem and oral beta-melony. Continue this. Possible discharge home tomorrow if labs improved. (3) Diabetes mellitus Current visit: Yes Status: Acute Category: Medical Code(s): E11.9 - Type 2 diabetes mellitus without complications (4) Obesity (BMI 30.0-34.9) Current visit: Yes Status: Chronic Category: Medical Code(s): E66.9 - Obesity, unspecified (5) Renal insufficiency Current visit: Yes Status: Acute Category: Medical Code(s): N28.9 - Disorder of kidney and ureter, unspecified Slightly worse this morning. Hold Lasix, fluid infusion. Check labs tomorrow.
[2018-09-11 06:10] LABS: Basophils % 0.2 % (0.1-2.0); Eosinophils % 0.1 % (0.1-12.0); Hematocrit 36.7 % (37.0-47.0); Hemoglobin 11.5 g/dL (12.2-16.2); Lymphocytes # 1.6 K/mm3 (0.7-4.5); Lymphocytes % 9.2 % (10-50); Mean Corpuscular HGB Conc 31.4 g/dL (31.8-35.4); Mean Corpuscular Volume 98.8 fl (81-99); Mean Platelet Volume 7.8 fl (7.4-10.4); Monocytes # 0.6 K/mm3 (0.1-1.0); Monocytes % 3.4 % (1.7-9.3); Neutrophils # 15.3 K/mm3 (1.8-7.8); Neutrophils % 87.2 % (37.0-80.0); Platelet Count 220 K/mm3 (142-424); Red Blood Count 3.72 M/mm3 (4.20-5.40); Red Cell Distribution Width 15.9 % (11.5-17.5); White Blood Count 17.5 K/mm3 (4.8-10.8)
[2018-09-11 06:17] LABS: INR 2.88 (0.9-1.1); Prothrombin Time 28.8 seconds (9.4-11.8)
[2018-09-11 06:19] LABS: Anion Gap 19.8 mEq/L (5-15); Calcium 8.3 mg/dL (8.5-10.1); Potassium 4.8 mmoL/L (3.5-5.1)
[2018-09-11 06:36] LABS: Hypochromasia 1+; Lymphocytes % 10 % (10-50); Macrocytosis 1+; Neutrophils % 83 % (42-76); Total Cells Counted 100
--- NOTE | 2018-09-11 08:45 | Discharge Summary ---
General - General Admission date:: 09/09/18 Discharge date: 09/11/18 HPI HPI: 82-year-old white female with history of hypertension, history of chronic atrial fibrillation on long-term warfarin therapy who I saw Wednesday in my office in [place] for regular checkup who was doing very nicely, with normal lung examination but reported that 2 days ago she began to have wheezing and shortness of air suddenly. Came to the emergency department, workup ensued which revealed evidence of significant bronchitis, mild hypoxia and some tachycardia. Patient was admitted for further evaluation. This morning she feels better but continues to have slightly rapid heart rate. Hospital Course Hospital Course: Patient was admitted. Cardiology was consulted regarding her atrial fibrillation and she was placed on diltiazem drip which was weaned off successfully but then had to be restarted the following day after a flare of her pneumonitis. This was treated with prednisone which resolved her symptoms. Diltiazem was then converted to p.o. when she was able to be weaned off the drip. Over the past 24 hours she is done well with rate controlled atrial fibrillation on current dose of beta-melony and Cardizem. Her lungs are slightly improving and she is been able to come off oxygen therapy. INR levels were found to be slightly elevated. Warfarin dose was held and now is in the therapeutic range. She did have an episode of increasing creatinine. This is improved somewhat this morning back towards her baseline after some IV fluids were administered through the night. This morning she feels much better, wishes to be discharged home. Plan will be as follows: 1. Warfarin dose will be changed to 2 mg daily. Will follow an INR on 09/14. 2. Atrial fibrillation-she will be discharged home on daily Cardizem therapy and beta-melony. Close follow-up in the office on 09/14. 3. Renal insufficiency issues-repeat creatinine on 09/14. 4. Pneumonitis-discharged home on short course of prednisone as well as antibiotics. Microbiology testing for culture as well as PCR testing has been negative. Objective Vital signs: Temp Pulse Resp BP Pulse Ox 98.4 F 85 20 158/78 H 97 09/11/18 08:00 09/11/18 08:00 09/11/18 08:00 09/11/18 08:00 09/11/18 08:00 Narrative: Patient is alert. Sitting on the side of the bed. In no respiratory distress. Good oxygen saturations in the 93-94% range on room air. Some crackles in the lungs but much improved. Heart rate irregular but rate controlled. Trace ankle edema. Abdomen soft and nontender. She is alert, pleasant, oriented x3. Results Labs on day of discharge: Labs from last 24 hours 09/11/18 09/11/18 09/11/18 05:45 05:45 05:45 WBC 17.5 H RBC 3.72 L Hgb 11.5 L Hct 36.7 L MCV 98.8 MCH 31.0 MCHC 31.4 L RDW 15.9 Plt Count 220 MPV 7.8 Neut % (Auto) 87.2 H Lymph % (Auto) 9.2 L [place] % (Auto) 3.4 Eos % (Auto) 0.1 Baso % (Auto) 0.2 Neut # (Auto) 15.3 H Lymph # (Auto) 1.6 [place] # (Auto) 0.6 Eos # (Auto) 0.0 Baso # (Auto) 0.0 Total Counted 100 Neutrophils % (Manual) 83 H Band Neutrophils % 7.0 Lymphocytes % (Manual) 10 Platelet Estimate Normal Hypochromasia 1+ Macrocytosis 1+ PT 28.8 H INR 2.88 H Sodium 138 Potassium 4.8 Chloride 104 Carbon Dioxide 19 L Anion Gap 19.8 H BUN 39 H Creatinine 2.05 H Estimated Creat Clear 30 Estimated GFR 23 L Est GFR ( Amer) 28 L Glucose 170 H POC Glucose Calcium 8.3 L 09/11/18 09/10/18 09/10/18 04:50 19:35 16:51 WBC RBC Hgb Hct MCV MCH MCHC RDW Plt Count MPV Neut % (Auto) Lymph % (Auto) [place] % (Auto) Eos % (Auto) Baso % (Auto) Neut # (Auto) Lymph # (Auto) [place] # (Auto) Eos # (Auto) Baso # (Auto) Total Counted Neutrophils % (Manual) Band Neutrophils % Lymphocytes % (Manual) Platelet Estimate Hypochromasia Macrocytosis PT INR Sodium Potassium Chloride Carbon Dioxide Anion Gap BUN Creatinine Estimated Creat Clear Estimated GFR Est GFR ( Amer) Glucose POC Glucose 151 H 168 H 176 H Calcium 09/10/18 11:47 WBC RBC Hgb Hct MCV MCH MCHC RDW Plt Count MPV Neut % (Auto) Lymph % (Auto) [place] % (Auto) Eos % (Auto) Baso % (Auto) Neut # (Auto) Lymph # (Auto) [place] # (Auto) Eos # (Auto) Baso # (Auto) Total Counted Neutrophils % (Manual) Band Neutrophils % Lymphocytes % (Manual) Platelet Estimate Hypochromasia Macrocytosis PT INR Sodium Potassium Chloride Carbon Dioxide Anion Gap BUN Creatinine Estimated Creat Clear Estimated GFR Est GFR ( Amer) Glucose POC Glucose 185 H Calcium Preliminary micro results at discharge 09/08/18 23:35 Blood Culture - Preliminary Blood NO GROWTH AFTER 48 HOURS 09/08/18 23:30 Blood Culture - Preliminary Blood NO GROWTH AFTER 48 HOURS DS: Diagnosis - Discharge Diagnosis (1) Acute interstitial pneumonitis Status: Acute (2) Atrial fibrillation with rapid ventricular response Status: Acute (3) Diabetes mellitus Status: Chronic (4) Obesity (BMI 30.0-34.9) Status: Chronic (5) Renal insufficiency Status: Chronic Discharge Plan - Patient Discharge Instructions ACTIVITY: Continue current activity DIET: continue same diet Patient Instructions: DI for Atrial Fibrillation, Warfarin, Coumadin Vitamin K/ Diet, Coumadin Therapy Booklet - Follow up Plan Follow up with: Josselin Woodruff APRN [Nurse Practitioner] - 09/14/18 2:00 pm Disposition: Home, Self-Snf Medications: Home Medications Medication Instructions Recorded Confirmed Type Allopurinol [Allopurinol 300mg 150 mg PO DAILY 09/08/18 09/09/18 History tablet] Furosemide [Furosemide 20mg Tab] 20 mg PO DAILY 09/08/18 09/09/18 History Irbesartan 150 mg PO DAILY 09/08/18 09/09/18 History Levothyroxine Sodium 100 mcg PO DAILY 09/08/18 09/09/18 History [Levothyroxine 100mcg (0.1MG) Tab] Linagliptin/Metformin HCl 1 each PO BID 09/08/18 09/09/18 History [Jentadueto 2.5 mg-1000 mg Tab] Metoprolol Tartrate 50 mg PO BID 09/08/18 09/09/18 History Omeprazole [Omeprazole 40mg 40 mg PO DAILY 09/08/18 09/09/18 History Capsule] Warfarin Sodium 2.5 mg PO DAILY 09/08/18 09/09/18 History Bisoprolol Fumarate [Zebeta 5mg 10 mg PO DAILY #30 tablet 09/11/18 Rx tablet] Warfarin Sodium 2 mg PO DAILY #30 tablet 09/11/18 Rx dilTIAZem HCl [Diltiazem 180mg 180 mg PO DAILY #30 cap.er.24h 09/11/18 Rx 24Hr ER Cap] predniSONE [Deltasone 20mg 20 mg PO BID #10 tablet 09/11/18 Rx tablet] Prescriptions/Medication Reconciliation: New dilTIAZem HCl [Diltiazem 180mg 24Hr ER Cap] 180 mg PO DAILY #30 cap.er.24h predniSONE [Deltasone 20mg tablet] 20 mg PO BID #10 tablet Warfarin Sodium 2 mg PO DAILY #30 tablet Bisoprolol Fumarate [Zebeta 5mg tablet] 10 mg PO DAILY #30 tablet Continue Furosemide [Furosemide 20mg Tab] 20 mg PO DAILY Allopurinol [Allopurinol 300mg tablet] 150 mg PO DAILY Levothyroxine Sodium [Levothyroxine 100mcg (0.1MG) Tab] 100 mcg PO DAILY Omeprazole [Omeprazole 40mg Capsule] 40 mg PO DAILY Discontinued Linagliptin/Metformin HCl [Jentadueto 2.5 mg-1000 mg Tab] 1 each PO BID Metoprolol Tartrate 50 mg PO BID Irbesartan 150 mg PO DAILY Warfarin Sodium 2.5 mg PO DAILY
== END 2018-09-11 10:35 | disposition home or self-care (01) | DRG 198 ==
LOC: ER 22:56 → 2ND 09-09 01:20
PROVIDERS: ADMIT Family Medicine; ATTEND Internal Medicine Adolescent Medicine
CPT/HCPCS: 36415; 70490; 71010; 71045; 71250; 80048; 80053; 80061; 80076; 81001; 82803; 82962; 83605; 83735; 83880; 84436; 84443; 84484; 85007; 85025; 85610; 85651; 86140; 87040; 87070; 87205; 87275; 87276; 87486; 87581; 87633; 87798; 93005; 93306; 94640; 94761; 96365; 96367; 96375; 99285; J0456

== ENCOUNTER → 2018-09-21 09:39 | Outpatient (CLI) | payer MEDICARE, SELFPAY ==
[2018-09-21 14:23] LABS: Alanine Aminotransferase 36 U/L (12-78); Albumin/Globulin Ratio 0.9 (1.1-1.8); Alkaline Phosphatase 65 U/L (46-116); Anion Gap 16.9 mEq/L (5-15); Aspartate Amino Transferase 14 U/L (15-37); Bilirubin,Total 0.7 mg/dL (0.2-1.0); Blood Urea Nitrogen 22 mg/dL (7-18); Calcium 8.4 mg/dL (8.5-10.1); Carbon Dioxide 24 mmol/L (21.0-32.0); Chloride 103 mmol/L (98-107); Creatinine,Serum 1.63 mg/dL (0.55-1.02); Estimated Glomerular Filt Rate 30 ml/min (>60); GFR (African American) 36 ML/MIN (>60); Globulin 3.2 gm/dl (1.3-3.2); Glucose 142 mg/dL (74-106); Potassium 3.9 mmoL/L (3.5-5.1); Sodium 140 mmol/L (136-145); Total Protein,Serum 6.2 gm/dL (6.4-8.2)
[2018-09-21 14:38] LABS: Basophils % 0.2 % (0.1-2.0); Eosinophils # 0.3 K/mm3 (0.0-0.4); Eosinophils % 1.8 % (0.1-12.0); Hemoglobin 12.8 g/dL (12.2-16.2); Lymphocytes # 2.2 K/mm3 (0.7-4.5); Lymphocytes % 15.6 % (10-50); Mean Corpuscular HGB Conc 30.5 g/dL (31.8-35.4); Mean Corpuscular Volume 98.3 fl (81-99); Mean Platelet Volume 8.9 fl (7.4-10.4); Monocytes # 0.7 K/mm3 (0.1-1.0); Monocytes % 5.2 % (1.7-9.3); Neutrophils # 10.8 K/mm3 (1.8-7.8); Neutrophils % 77.2 % (37.0-80.0); Platelet Count 189 K/mm3 (142-424); Red Blood Count 4.28 M/mm3 (4.20-5.40); Red Cell Distribution Width 15.6 % (11.5-17.5)
[2018-09-21 15:18] LABS: INR 2.13 (0.9-1.1); Prothrombin Time 21.5 seconds (9.4-11.8)
== END ==
PROVIDERS: PCP Nurse Practitioner Family; Visit Provider Nurse Practitioner Family
DX: I48.2 Chronic atrial fibrillation (principal)
CPT/HCPCS: 36415; 80053; 85025; 85610

== ENCOUNTER → 2018-11-03 09:30 | Outpatient (CLI) | payer MEDICARE, SELFPAY ==
[2018-11-03 14:46] LABS: INR 3.35 (0.9-1.1); Prothrombin Time 33.3 seconds (9.4-11.8)
== END ==
PROVIDERS: PCP Internal Medicine Adolescent Medicine; Visit Provider Internal Medicine Adolescent Medicine
DX: I48.2 Chronic atrial fibrillation (principal)
CPT/HCPCS: 36415; 85610

== ENCOUNTER 2020-02-08 08:00 | Emergency (ER) | payer MEDICARE, SELFPAY ==
--- NOTE | 2020-02-08 08:00 | ECG_ITS ---
APPROVED REPORT Exam: Resting ECG HR:83 bpm ECG Measurements Heart Rate 83 AXES QRSd 76 QRS 22 QT 374 T -9 QTc 439 <Conclusion> Atrial fibrillation Low voltage QRS Nonspecific T wave abnormality, probably digitalis effect Abnormal ECG Electronically signed by : Gordo Phillips, 02/08/2020 21:38:50
[2020-02-08 08:01] VITALS: BP 161/70; PULSE 83; RESP 18; TEMP 36.6; O2SAT 97; BMI 35.4
--- NOTE | 2020-02-08 08:09 | XR_ITS ---
PROCEDURE: XR CHEST PORTABLE CLINICAL HISTORY: chest pain COMPARISON: CHESTWO CT chest wo con from 09/09/2018 FINDINGS: The cardiomediastinal silhouette and pulmonary vascularity are within normal limits. No lobar consolidation or collapse. Unusual density is present in the left lung base medially and may be due to combination of elevated hemidiaphragm with pericardial fat pad and or superimposed gastric air bubble. Degenerative changes of the shoulders IMPRESSION: No acute findings. Dictated by: Avtar Issa MD 02/08/2020 08:39 Electronically signed by Avtar Issa MD in [place] 02/08/2020 08:39
--- NOTE | 2020-02-08 08:25 | PC.NURSE ---
Rad at bedside
[2020-02-08 08:31] LABS: Chloride 105 mmol/L (98-107); Potassium 3.9 mmoL/L (3.5-5.1); Sodium 136 mmol/L (136-145)
[2020-02-08 08:34] LABS: Anion Gap 10.9 mEq/L (5-15); Blood Urea Nitrogen 19 mg/dl (7-17); Calcium 9.2 mg/dl (8.4-10.2); Carbon Dioxide 24 mmol/L (22.0-30.0); Creatinine Clearance Estimated 37 mL/min (50-200); Estimated Glomerular Filt Rate 31 ml/min (>60); GFR (African American) 37 ML/MIN (>60); Glucose 130 mg/dl (74-100)
[2020-02-08 08:35] LABS: INR 2.96 (0.9-1.1); Prothrombin Time 29.2 seconds (9.4-11.8)
[2020-02-08 08:51] LABS: Troponin I < 0.01 ng/ml (0.00-0.034)
[2020-02-08 08:53] LABS: Basophils # 0.1 K/mm3 (0-0.2); Basophils % 0.7 % (0.1-2.0); Eosinophils # 0.2 K/mm3 (0.0-0.4); Eosinophils % 1.9 % (0.1-12.0); Hematocrit 43.6 % (37.0-47.0); Hemoglobin 13.9 g/dL (12.2-16.2); Lymphocytes # 1.9 K/mm3 (0.7-4.5); Lymphocytes % 22.1 % (10-50); Mean Corpuscular HGB Conc 31.9 g/dL (31.8-35.4); Mean Corpuscular Hemoglobin 30.9 pg (27.0-31.2); Mean Corpuscular Volume 97.1 fl (81-99); Mean Platelet Volume 8.6 fl (7.4-10.4); Monocytes # 0.5 K/mm3 (0.1-1.0); Monocytes % 5.5 % (1.7-9.3); Neutrophils # 5.9 K/mm3 (1.8-7.8); Neutrophils % 69.8 % (37.0-80.0); Platelet Count 167 K/mm3 (142-424); Red Blood Count 4.49 M/mm3 (4.20-5.40); Red Cell Distribution Width 15.7 % (11.5-17.5); White Blood Count 8.5 K/mm3 (4.8-10.8)
[2020-02-08 08:56] VITALS: BP 145/79; PULSE 83; O2SAT 97
--- NOTE | 2020-02-08 08:56 | PC.NURSE ---
Family at bedside at this time.
[2020-02-08 09:05] VITALS: BP 160/79; PULSE 83; O2SAT 95
[2020-02-08 09:29] VITALS: BP 165/87; PULSE 90; O2SAT 96
--- NOTE | 2020-02-08 09:38 | [facility].EDCP ---
ED Disposition Clinical Impression: Atypical chest pain, Adverse drug event Clinical Impression: (Ruled Out): Adverse reaction to antithrombotic medication Disposition: Home, Self-Care Condition on Discharge: Good Instructions: DI for Atypical Chest Pain Referrals: Gordo Phillips MD [Primary Care Provider] - - Critical Care Critical Care Time: No Attestation: On 02/08/20, the high probability of a clinically significant, sudden or life threatening deterioration of the following system(s) required my full and direct attention, intervention and personal management. The time I documented below is in addition to time spent performing reported procedures but includes the following listed in this critical care notation. Medical Decision Making - Medical Records Medical records reviewed: Yes: I reviewed the patient's medical records. - Anders Inquiry Pt receiving controlled substance: No Vital Signs: 02/08/20 08:01 02/08/20 08:56 02/08/20 09:05 Temperature 98 F Temperature Source Oral Pulse Rate [Left Radial] 83 83 83 Respiratory Rate 18 Blood Pressure [Right Arm] 161/70 H 145/79 H 160/79 H Blood Pressure Mean [Right Arm] 100 101 106 Blood Pressure Source [Right Arm] Automatic Cuff Automatic Cuff Blood Pressure Position [Right Arm] Sitting Sitting Sitting 02 Sat by Pulse Oximetry 97 97 95 Oxygen Delivery Method Room Air Room Air Room Air 02/08/20 09:29 Temperature Temperature Source Pulse Rate [Left Radial] 90 Respiratory Rate Blood Pressure [Right Arm] 165/87 H Blood Pressure Mean [Right Arm] 113 Blood Pressure Source [Right Arm] Automatic Cuff Blood Pressure Position [Right Arm] Sitting 02 Sat by Pulse Oximetry 96 Oxygen Delivery Method Room Air - Lab Data Lab results reviewed: Yes: I reviewed the patient's lab results. Lab Results 02/08/20 08:20: WBC 8.5, RBC 4.49, Hgb 13.9, Hct 43.6, MCV 97.1, MCH 30.9, MCHC 31.9, RDW 15.7, Plt Count 167, MPV 8.6, Neut % (Auto) 69.8, Lymph % (Auto) 22.1, [place] % (Auto) 5.5, Eos % (Auto) 1.9, Baso % (Auto) 0.7, Neut # (Auto) 5.9, Lymph # (Auto) 1.9, [place] # (Auto) 0.5, Eos # (Auto) 0.2, Baso # (Auto) 0.1 02/08/20 08:20: PT 29.2 H, INR 2.96 H 02/08/20 08:20: Sodium 136, Potassium 3.9, Chloride 105, Carbon Dioxide 24, Anion Gap 10.9, BUN 19 H, Creatinine 1.60 H, Estimated Creat Clear 37, Estimated GFR 31 L, Est GFR ( Amer) 37 L, Glucose 130 H, Calcium 9.2, Troponin I < 0.01 Result diagrams: 02/08/20 08:20 02/08/20 08:20 Orders (Tests/Meds): ED MEDICATIONS Discontinued Medications Generic Name Dose Route Start Last Admin Trade Name Freq PRN Reason Stop Dose Admin Nitroglycerin 1 gm 02/08/20 09:35 02/08/20 08:30 Nitroglycerin 1 Inch Oint Udp TD 02/08/20 09:36 1 gm ONCE ONE Administration Ondansetron HCl 2 mg 02/08/20 08:26 02/08/20 08:28 Zofran 4mg/2ml Vial IV 02/08/20 08:27 Not Given ONCE ONE Ondansetron HCl 4 mg 02/08/20 08:28 02/08/20 08:29 Zofran 4mg/2ml Vial IV 02/08/20 08:29 4 mg ONCE ONE Administration ORDERS Category Date Time Status Troponin I Q3H Lab 02/08/20 11:15 Ordered Troponin I Q3H Lab 02/08/20 14:15 Ordered - Radiology Data #1 Image(s): Chest Preliminary Findings: Normal/NAD - ECG Data Tracing #1 I reviewed this ECG and interpreted as documented below: Arrhythmias present: afib Chest Pain HPI - General Chief Complaint: Chest Pain Stated Complaint: SOA Time Seen by Provider: 02/08/20 09:20 Mode of Arrival: EMS Source of Information: Patient Limitations: No Limitations Description of Symptoms (Recalled from ER Triage Doc. by RN): to ed per squad with c/o sob, chest tightness radiating into back, lt shoulder and arm numbness nausea and vomiting x 2 days. states symptoms worse with exertion. pt seen by pcp wednesday meds changed d/rashi metoprolol to dilt. pt states I think its from the medication change however pt states seen PCP for these same sy
[2020-02-08 09:51] VITALS: BP 136/85; PULSE 90; O2SAT 98
[2020-02-08 10:24] VITALS: BP 126/74; PULSE 74; RESP 16; TEMP 36.6; O2SAT 98
== END 2020-02-08 10:26 | disposition home or self-care (01) ==
PROVIDERS: Emergency Provider Family Medicine; PCP Internal Medicine Adolescent Medicine
DX: R07.89 Other chest pain (principal); T46.1X5A Adverse effect of calcium-channel blockers, initial encounter; Y92.019 Unspecified place in single-family (private) house as the place of occurrence of the external cause; E11.9 Type 2 diabetes mellitus without complications; E78.5 Hyperlipidemia, unspecified; I10 Essential (primary) hypertension; Z88.0 Allergy status to penicillin; Z79.899 Other long term (current) drug therapy; I48.20 Chronic atrial fibrillation, unspecified
CPT/HCPCS: 71045; 80048; 84484; 85025; 85610; 93005; 96374; 99284; J2405

== ENCOUNTER → 2021-01-08 10:24 | Outpatient (CLI) | payer MEDICARE, SELFPAY ==
[2021-01-08 10:54] LABS: Basophils # 0.2 K/mm3 (0-0.2); Eosinophils # 0.4 K/mm3 (0.0-0.4); Eosinophils % 2.2 % (0.1-12.0); Hematocrit 45.7 % (37.0-47.0); Hemoglobin 14.7 g/dL (12.2-16.2); Lymphocytes # 2.6 K/mm3 (0.7-4.5); Lymphocytes % 15.9 % (10-50); MANUAL DIFFERENTIAL MANUAL DIFFERENTIAL (MANUAL DIFF); Mean Corpuscular HGB Conc 32.3 g/dL (31.8-35.4); Mean Corpuscular Hemoglobin 28.9 pg (27.0-31.2); Mean Corpuscular Volume 89.5 fl (81-99); Monocytes # 0.7 K/mm3 (0.1-1.0); Monocytes % 4.3 % (1.7-9.3); Neutrophils # 12.3 K/mm3 (1.8-7.8); Neutrophils % 76.6 % (37.0-80.0); Platelet Count 158 K/mm3 (142-424); Red Cell Distribution Width 14.8 % (11.5-17.5)
--- NOTE | 2021-01-08 11:13 | ECG_ITS ---
APPROVED REPORT Exam: Resting ECG HR:79 bpm ECG Measurements Heart Rate 79 AXES QRSd 72 QRS 61 QT 322 T 260 QTc [address] & T wave abnormality, consider electrolyte disturbance or rate affect Abnormal ECG Electronically signed by : Gordo Phillips, 01/08/2021 17:34:19
[2021-01-08 11:49] LABS: Coronavirus 19 IgG Antibody Negative (Negative); Coronavirus 19 IgM Antibody Negative (Negative)
[2021-01-08 11:50] LABS: Anion Gap 11.7 mEq/L (5-15); Blood Urea Nitrogen 28 mg/dl (7-17); Calcium 9.7 mg/dl (8.4-10.2); Carbon Dioxide 26 mmol/L (22.0-30.0); Chloride 102 mmol/L (98-107); Estimated Glomerular Filt Rate 27 ml/min (>60); GFR (African American) 32 ML/MIN (>60); Glucose 322 mg/dl (74-100); Potassium 4.7 mmoL/L (3.5-5.1); Sodium 135 mmol/L (136-145)
[2021-01-08 16:19] LABS: Lymphocytes % 7 % (10-50); Monocytes % 10 % (2-9); Neutrophils % 77 % (42-76); Platelet Estimate Normal; RBC Morphology Normal; Total Cells Counted 100
== END ==
PROVIDERS: Visit Provider Otolaryngology
DX: Z01.812 Encounter for preprocedural laboratory examination (principal); Z11.52 Encounter for screening for COVID-19; J34.89 Other specified disorders of nose and nasal sinuses; Z51.81 Encounter for therapeutic drug level monitoring; Z79.01 Long term (current) use of anticoagulants
CPT/HCPCS: 36415; 80048; 85007; 85025; 86328; 93005

== ENCOUNTER 2021-01-09 06:07 | Day surgery (SDC) | payer MEDICARE, SELFPAY ==
[2021-01-07 11:48] VITALS: BMI 28.7
[2021-01-09 06:33] VITALS: BP 164/73; PULSE 108; RESP 18; TEMP 36.5; O2SAT 97
[2021-01-09 06:56] LABS: POC Glucose,Bedside 329 (70-110)
[2021-01-09 08:02] VITALS: BP 145/68; PULSE 78; RESP 18; TEMP 36.1; O2SAT 96
[2021-01-09 08:12] VITALS: BP 128/97; PULSE 60; RESP 18; O2SAT 96
--- NOTE | 2021-01-09 08:14 | HMH.OPNOTE ---
Date of procedure: 01/09/21 Pre-op Diagnosis:: 1. 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 Diabetes mellitus insulin dependent Post-op Diagnosis:: same Procedure performed:: 1. Excision of Neoplasm right side of nose 2.8 cm with tissue rearrangement Z-plasty repair Surgeon:: Hans Jeff MD REPRESENTATIVE GOVERNMENT RELATIONS:: Other (Richi Kumar) Anesthesia: MAC Estimated blood loss (mL): 10 Operative findings:: same Operative note:: This patient's eyes were protected with Steri-Strips, the face was prepped and draped. The perilesional area on the right side of the nose was infiltrated with a total of 3 cc of 2% lidocaine containing epinephrine. The lesion on the right side of the nose was marked out and it measured 2.8 cm. The patient does have cardiovascular disease and she was allowed to remain on her Plavix so she was a little more vascular than usual because of that. The lesion was marked out the franko out was incised and the lesion was excised completely and submitted. Bleeding was stopped with cautery. A anterior and posterior incision was made, Surgicel snow was placed in the defect and a tissue rearrangement Z-plasty repair was done with interrupted 2-0 nylon sutures. An excellent repair was obtained. Dermabond was applied to the repair. And a dot dressing was also applied. The patient was sent to recovery in stable general condition. Condition: stable Disposition: PACU Complications:: none
[2021-01-09 08:22] VITALS: BP 137/73; PULSE 65; RESP 18; O2SAT 96
[2021-01-09 08:26] LABS: POC Glucose,Bedside 246 (70-110)
[2021-01-09 08:30] VITALS: BP 135/60; PULSE 60; RESP 18; O2SAT 97
--- NOTE | 2021-01-09 10:28 | P.PN_ITS ---
[facility] Anesthesia Checklist - Structural Data Admitted From: Home Planned Operative Procedure/s: Excision neoplasm/lesion Right nasal Consent for Planned Operative Procedure(s) Verified: Yes Verified Documents: History and Physical - NPO Status Verified Time NPO: 00:00 - Additional verifications Anesthesia Reactions: No Hx Blood Transfusions: No Blood Transfusion Reaction: No - Airway Assessment C-Spine Mobility Assessed: Yes TMJ Mobility Assessed: Yes Dentition: Good Dentition - Neurological Assessment Level of Consciousness: Awake, Alert - Anesthesia Plan Anesthesia Risk discussed: Yes Anesthesia Plan: Verified ASA Class: III Anesthesia Type: Local & MAC [facility] History Medical History: Reports:: Arrhythmia, Atrial Fibrillation, Cancer (skin cancer), Diabetes Mellitus Type 2, Hyperlipidemia, Hypertension Denies:: Diabetes Mellitus Type 1, Internal Pacemaker, MRSA, Seizures *Have you ever received a pneumonia vaccine?: Yes *Have you received a flu vaccine this season?: No Other Medical History: Denies: Blood Transfusion Reaction Anesthesia experience/problems:: None Laterality Cases: Right: ACL Repair Other Surgeries: Yes: Tubal Ligation. No: Pacemaker Amputation: No Fractures: No - *Social History Smoking Status: Never smoker Alcohol Intake: never Substance Use Type: denies use *Occupational Status:: retired Housing: house Household Members: none *Travel in the last 8 weeks: None Family Hx:: No significant family history
== END 2021-01-09 08:32 | disposition home or self-care (01) ==
PROVIDERS: PCP Internal Medicine Adolescent Medicine; Visit Provider Otolaryngology
DX: C44.321 Squamous cell carcinoma of skin of nose; E11.8 Type 2 diabetes mellitus with unspecified complications; Z85.828 Personal history of other malignant neoplasm of skin; Z79.4 Long term (current) use of insulin; I49.9 Cardiac arrhythmia, unspecified; I48.91 Unspecified atrial fibrillation; E78.5 Hyperlipidemia, unspecified; I10 Essential (primary) hypertension; Z79.01 Long term (current) use of anticoagulants; Z79.899 Other long term (current) drug therapy; Z88.0 Allergy status to penicillin; Z88.1 Allergy status to other antibiotic agents
CPT/HCPCS: 14060; 82962; 88305; 96374

== ENCOUNTER → 2021-04-04 14:48 | Outpatient (CLI) | payer MEDICARE, SELFPAY ==
--- NOTE | 2021-04-04 14:54 | CT_ITS ---
PROCEDURE: CT FACIAL BONES WO CON CLINICAL HISTORY: FACIAL PAIN, MASTOIDITIS OF RT SIDE Tooth infection COMPARISON: CT NECKWO CT soft tissue neck wo con from 09/09/2018 TECHNIQUE: Axial images obtained with sagittal and coronal reformats. All CT scans at the facility use one or more dose reduction, viz: automated exposure control, ma/kV adjustment per patient size (including targeted exams where dose is matched to indication, i.e. head), or iterative reconstruction technique. FINDINGS: Lobular soft tissue density is present within the sphenoid sinus inferiorly measuring 11 mm consistent with a mucous retention cyst. No sinus air-fluid levels are evident. There is mild rightward nasal septal deviation. Fluid density noted in the mastoid sinus on the left with some sclerosis the left mastoid sinus. There is mild thickening of the left tympanic membrane. There is some minimal opacification/mucosal thickening of the left middle ear. No obvious scutal erosion. Minimal amount of fluid noted in the inferior tip of the right mastoid sinus. Caries noted within the right inferior canine tooth. The mandible itself has an unremarkable appearance. No erosive changes or periapical abscess apparent. Scattered small nodes are present in the neck. The parotid glands and submandibular glands have an unremarkable appearance. Unremarkable TMJs. The globes have an unremarkable appearance. No obvious soft tissue abscess. IMPRESSION: 1. There is caries within the right canine tooth. No obvious periapical abscess. No evidence of osteomyelitis of the mandible. No obvious soft tissue abscess. 2. Mild rightward nasal septal deviation. Small sphenoid retention cyst. 3. Mild bilateral mastoid sinus disease left greater than right with thickening of the left hand panic membrane and minimal mucosal thickening in the left middle ear canal Dictated by: Avtar Issa MD 04/05/2021 08:50 Avtar Issa MD in [place] 04/05/2021 08:50
[2021-04-04 16:31] LABS: Basophils # 0.3 K/mm3 (0-0.2); Basophils % 1.8 % (0.1-2.0); Eosinophils # 0.3 K/mm3 (0.0-0.4); Eosinophils % 1.9 % (0.1-12.0); Hematocrit 45.8 % (37.0-47.0); Hemoglobin 15.8 g/dL (12.2-16.2); Lymphocytes # 3.2 K/mm3 (0.7-4.5); Lymphocytes % 23.6 % (10-50); Mean Corpuscular HGB Conc 34.4 g/dL (31.8-35.4); Mean Corpuscular Hemoglobin 30.7 pg (27.0-31.2); Mean Corpuscular Volume 89.1 fl (81-99); Mean Platelet Volume 12.6 fl (7.4-10.4); Monocytes # 1.5 K/mm3 (0.1-1.0); Neutrophils # 8.5 K/mm3 (1.8-7.8); Neutrophils % 61.7 % (37.0-80.0); Red Blood Count 5.14 M/mm3 (4.20-5.40); Red Cell Distribution Width 15.8 % (11.5-17.5); White Blood Count 13.7 K/mm3 (4.8-10.8)
[2021-04-04 17:53] LABS: Erythrocyte Sedimentation Rate 16 mm/hr (0-30)
[2021-04-04 18:09] LABS: Platelet Count 43 K/mm3 (142-424)
[2021-04-04 19:58] LABS: Alanine Aminotransferase 53 U/L (12-78); Albumin Level 4.1 g/dl (3.5-5.0); Albumin/Globulin Ratio 1.4 (1.1-1.8); Alkaline Phosphatase 167 U/L (38-126); Anion Gap 17.7 mEq/L (5-15); Aspartate Amino Transferase 26 U/L (14-36); Bilirubin,Total 0.8 mg/dl (0.2-1.3); Blood Urea Nitrogen 30 mg/dl (7-17); Calcium 9.4 mg/dl (8.4-10.2); Carbon Dioxide 23 mmol/L (22.0-30.0); Chloride 99 mmol/L (98-107); Estimated Glomerular Filt Rate 28 ml/min (>60); GFR (African American) 34 ML/MIN (>60); Glucose 369 mg/dl (74-100); Potassium 4.7 mmoL/L (3.5-5.1); Sodium 135 mmol/L (136-145); Total Protein,Serum 7.1 g/dl (6.3-8.2)
== END ==
PROVIDERS: PCP Internal Medicine Adolescent Medicine; Visit Provider Internal Medicine Adolescent Medicine
DX: R51.9 Headache, unspecified (principal); H70.91 Unspecified mastoiditis, right ear
CPT/HCPCS: 36415; 70486; 80053; 85025; 85651

== ENCOUNTER 2021-04-13 00:57 | Emergency (ER) | payer MEDICARE, SELFPAY ==
[2021-04-13] VITALS (11 sets, daily range): BP systolic 147–168; BP diastolic 70–104; PULSE 62–134; RESP 16–18; TEMP 36.6; O2SAT 95–97; BMI 28.0
[2021-04-13 01:16] LABS: POC Glucose,Bedside 522 (70-110)
--- NOTE | 2021-04-13 01:16 | XR_ITS ---
PROCEDURE INFORMATION: Exam: XR Pelvis Exam date and time: 04/13/2021 1:16 AM Age: 85 years old Clinical indication: Injury or trauma; Blunt trauma (contusions or hematomas); Bilateral; Pelvic region; Patient HX: Fall out of bed TECHNIQUE: Imaging protocol: XR pelvis. Views: 1 or 2 view. COMPARISON: No relevant prior studies available. FINDINGS: Bones/joints: Osteopenia. No acute displaced fracture. Scoliosis with multilevel spondylosis. Mild degenerative spurring of the hips and SI joints. Soft tissues: Unremarkable. IMPRESSION: No acute displaced fracture.
--- NOTE | 2021-04-13 01:16 | CT_ITS ---
PROCEDURE INFORMATION: Exam: CT Abdomen And Pelvis Without Contrast Exam date and time: 04/13/2021 1:16 AM Age: 85 years old Clinical indication: Nausea and vomiting; Patient HX: PT has hernia; Additional info: N/v/d TECHNIQUE: Imaging protocol: Computed tomography of the abdomen and pelvis without contrast. Radiation optimization: All CT scans at this facility use at least one of these dose optimization techniques: automated exposure control; mA and/or kV adjustment per patient size (includes targeted exams where dose is matched to clinical indication); or iterative reconstruction. COMPARISON: CR XR PELVIS 1-2V 04/13/2021 1:57 AM FINDINGS: Lungs: Lung bases demonstrate emphysema and mild dependent atelectasis. Incidental 4 mm nodule in the lateral left lower lobe (series 3, image 14), routine follow-up not indicated given patient age. Heart: Mild cardiomegaly. No pericardial effusion. Liver: Unremarkable noncontrast appearance. Gallbladder and bile ducts: Probable peripherally calcified 6 mm gallstone near the gallbladder neck. No gallbladder wall thickening. No biliary dilation. Pancreas: Unremarkable noncontrast appearance. Spleen: Mild splenomegaly, measuring 14.5 cm in craniocaudal dimension. Adrenal glands: Normal. No mass. Kidneys and ureters: Nonspecific bilateral perinephric fat stranding, slightly greater on the left. No hydronephrosis. No nephrolithiasis. Stomach and bowel: Moderate amount of solid stool present throughout the colon. No colonic wall thickening. Diverticulosis, without evidence of acute diverticulitis. No small bowel dilation or obstruction. Small hiatal hernia. Appendix: No evidence of appendicitis. Intraperitoneal space: No pneumoperitoneum. No ascites. Trace presacral edema. Vasculature: No abdominal aortic aneurysm. Relatively diffuse calcified atherosclerotic plaque. Bilateral renal artery stenosis. Lymph nodes: No enlarged lymph nodes. Urinary bladder: No wall thickening. Reproductive: Mild inhomogeneity of the uterus, probably due to small fibroids in the fundus. Bones/joints: Osteopenia. There is an acute-appearing minimally displaced fracture of the distal sacrum near the sacrococcygeal junction. Mild sigmoidal curvature of the lumbar spine. Multilevel spondylosis with neural foraminal and spinal canal stenosis, greatest at L4-L5. Soft tissues: Small umbilical hernia containing fat. IMPRESSION: 1. Likely acute minimally displaced fracture of the distal sacrum near the sacrococcygeal junction. 2. No evidence of acute traumatic injury involving the solid abdominal organs or hollow viscera. 3. No bowel obstruction. Diverticulosis, without evidence of acute diverticulitis. 4. No hydronephrosis or obstructive uropathy. Nonspecific left greater than right perinephric fat stranding. This may be correlated with urinalysis and renal function tests. 5. Probable cholelithiasis.
--- NOTE | 2021-04-13 01:16 | XR_ITS ---
PROCEDURE INFORMATION: Exam: XR Chest Exam date and time: 04/13/2021 1:16 AM Age: 85 years old Clinical indication: Injury or trauma; Blunt trauma (contusions or hematomas); Patient HX: Fall out of bed; Additional info: Weakness TECHNIQUE: Imaging protocol: XR of the chest. Views: 1 view. COMPARISON: CR XR CHEST PORTABLE 02/08/2020 8:32 AM FINDINGS: Lungs: Hyperinflation/emphysema with mild diffuse interstitial coarsening. No airspace consolidation. Pleural spaces: No pleural effusion. No pneumothorax. Heart/Mediastinum: Cardiomegaly. Aortic atherosclerosis. Bones/joints: Osteopenia. No acute displaced fracture. IMPRESSION: 1. No acute finding. 2. COPD. Cardiomegaly.
[2021-04-13 01:22] LABS: Microscopic, Urine URINE MICROSCOPIC (MICROSCOPIC)
[2021-04-13 01:24] LABS: Basophils # 0.2 K/mm3 (0-0.2); Basophils % 1.2 % (0.1-2.0); Eosinophils # 0.3 K/mm3 (0.0-0.4); Eosinophils % 2.5 % (0.1-12.0); Hematocrit 43.9 % (37.0-47.0); Hemoglobin 14.5 g/dL (12.2-16.2); Lymphocytes # 2.3 K/mm3 (0.7-4.5); Mean Corpuscular HGB Conc 33.1 g/dL (31.8-35.4); Mean Corpuscular Hemoglobin 29.9 pg (27.0-31.2); Mean Corpuscular Volume 90.4 fl (81-99); Mean Platelet Volume 11.4 fl (7.4-10.4); Monocytes # 0.6 K/mm3 (0.1-1.0); Monocytes % 4.5 % (1.7-9.3); Neutrophils # 9.4 K/mm3 (1.8-7.8); Neutrophils % 73.9 % (37.0-80.0); Platelet Count 83 K/mm3 (142-424); Red Blood Count 4.86 M/mm3 (4.20-5.40); Red Cell Distribution Width 15.3 % (11.5-17.5); White Blood Count 12.8 K/mm3 (4.8-10.8)
[2021-04-13 01:26] LABS: Acetone, Serum (Rapid) None Detected (None Detect); Chloride 97 mmol/L (98-107)
[2021-04-13 01:27] LABS: Potassium 4.1 mmoL/L (3.5-5.1); Sodium 131 mmol/L (136-145)
[2021-04-13 01:29] LABS: Alanine Aminotransferase 61 U/L (12-78); Alkaline Phosphatase 167 U/L (38-126); Amylase 57 U/L (30-110); Anion Gap 12.1 mEq/L (5-15); Aspartate Amino Transferase 45 U/L (14-36); Bilirubin,Total 0.8 mg/dl (0.2-1.3); Blood Urea Nitrogen 29 mg/dl (7-17); Carbon Dioxide 26 mmol/L (22.0-30.0); Creatinine Clearance Estimated 27 mL/min (50-200); Estimated Glomerular Filt Rate 28 ml/min (>60); GFR (African American) 34 ML/MIN (>60)
[2021-04-13 01:30] LABS: Albumin Level 3.9 g/dl (3.5-5.0); Albumin/Globulin Ratio 1.2 (1.1-1.8); Calcium 9.5 mg/dl (8.4-10.2); Globulin 3.3 g/dL (1.3-3.2); Lipase 142 U/L (23-300); Total Protein,Serum 7.2 g/dl (6.3-8.2)
[2021-04-13 01:31] LABS: Appearance,Urine CLEAR (Clear); Bilirubin,Urine Negative (Negative); Blood, Urine 1+ (Negative); Color,Urine YELLOW (Yellow); Glucose,Urine (UA) 3+ (Negative); Ketones,Urine Negative (Negative); Leukocyte Esterase,Urine Negative (Negative); Nitrate,Urine Negative (Negative); PH,Urine 5.5 (5.0-8.5); Protein,Urine 2+ (Negative); Specific Gravity, Urine 1.015 (1.005-1.030); Urobilinogen,Urine 0.2 EU/dl (0.2)
[2021-04-13 01:35] LABS: Amorphous Sediment,Urine Trace /lpf; Yeast,Urine Occasional /lpf
[2021-04-13 01:35] LABS: C-Reactive Protein 12.9 mg/L (0-4)
[2021-04-13 01:39] LABS: Glucose 497 mg/dl (74-100)
[2021-04-13 01:48] LABS: Erythrocyte Sedimentation Rate 21 mm/hr (0-30)
[2021-04-13 01:52] LABS: Coronavirus 19, PCR Not Detected (NotDetected); Influenza A, PCR Not Detected (NotDetected); Influenza B, PCR Not Detected (NotDetected)
[2021-04-13 02:33] LABS: Prothrombin Time 18.3 seconds (10.1-12.5)
[2021-04-13 02:40] LABS: INR 1.61 (0.9-1.1)
--- NOTE | 2021-04-13 02:40 | HMH.EDWEAK ---
ED Disposition Clinical Impression: Renal insufficiency, Atrial fibrillation with rapid ventricular response Diabetes mellitus Qualifiers: Diabetes mellitus type: type 2 Diabetes mellitus rat exterminator insulin use: unspecified rat exterminator insulin use status Diabetes mellitus complication status: with other specified complication Qualified Code(s): E11.69 - Type 2 diabetes mellitus with other specified complication Sacral fracture, closed Qualifiers: Encounter type: initial encounter Fracture morphology: unspecified fracture morphology Qualified Code(s): S32.10XA - Unspecified fracture of sacrum, initial encounter for closed fracture Disposition: Home, Self-Care Condition on Discharge: Good Instructions: Complications of Type 2 Diabetes Additional Instructions: call pcp on wednesday Referrals: Gordo Phillips MD [Primary Care Provider] - - Critical Care Critical Care Time: No Attestation: On 04/13/21, the high probability of a clinically significant, sudden or life threatening deterioration of the following system(s) required my full and direct attention, intervention and personal management. The time I documented below is in addition to time spent performing reported procedures but includes the following listed in this critical care notation. Medical Decision Making - Medical Records Medical records reviewed: Yes: I reviewed the patient's medical records. - Anders Inquiry Pt receiving controlled substance: No Vital Signs: 04/13/21 00:58 04/13/21 01:31 04/13/21 02:00 Temperature 97.9 F Temperature Source Oral Pulse Rate 102 H 74 Pulse Rate [Orthostatic Lying Right Radial] Pulse Rate [Orthostatic Standing Right Radial] Pulse Rate [Right] 92 H Respiratory Rate 16 18 Blood Pressure 153/77 H 147/70 H Blood Pressure [Orthostatic Lying Right Arm] Blood Pressure [Orthostatic Standing Right Arm] Blood Pressure [Right Arm] 168/100 H Blood Pressure Mean 102 95 Blood Pressure Mean [Right Arm] 122 02 Sat by Pulse Oximetry 95 97 97 04/13/21 02:30 04/13/21 02:46 04/13/21 02:52 Temperature Temperature Source Pulse Rate 80 77 Pulse Rate [Orthostatic Lying Right Radial] 62 Pulse Rate [Orthostatic Standing Right Radial] Pulse Rate [Right] Respiratory Rate 18 Blood Pressure 158/79 H 152/72 H Blood Pressure [Orthostatic Lying Right Arm] 152/72 H Blood Pressure [Orthostatic Standing Right Arm] Blood Pressure [Right Arm] Blood Pressure Mean 99 98 Blood Pressure Mean [Right Arm] 02 Sat by Pulse Oximetry 95 96 04/13/21 02:54 04/13/21 03:30 04/13/21 04:00 Temperature Temperature Source Pulse Rate 75 66 Pulse Rate [Orthostatic Lying Right Radial] 134 H Pulse Rate [Orthostatic Standing Right Radial] 134 H Pulse Rate [Right] Respiratory Rate 18 18 Blood Pressure 159/87 H 160/77 H Blood Pressure [Orthostatic Lying Right Arm] 155/104 H Blood Pressure [Orthostatic Standing Right Arm] 155/104 H Blood Pressure [Right Arm] Blood Pressure Mean 111 117 Blood Pressure Mean [Right Arm] 02 Sat by Pulse Oximetry 97 96 04/13/21 04:30 Temperature Temperature Source Pulse Rate 68 Pulse Rate [Orthostatic Lying Right Radial] Pulse Rate [Orthostatic Standing Right Radial] Pulse Rate [Right] Respiratory Rate 18 Blood Pressure 151/74 H Blood Pressure [Orthostatic Lying Right Arm] Blood Pressure [Orthostatic Standing Right Arm] Blood Pressure [Right Arm] Blood Pressure Mean 99 Blood Pressure Mean [Right Arm] 02 Sat by Pulse Oximetry 97 - Lab Data Lab results reviewed: Yes: I reviewed the patient's lab results. Lab Results 04/13/21 00:38: WBC 12.8 H, RBC 4.86, Hgb 14.5, Hct 43.9, MCV 90.4, MCH 29.9, MCHC 33.1, RDW 15.3, Plt Count 83 L, MPV 11.4 H, Neut % (Auto) 73.9, Lymph % (Auto) 18.0, [place] % (Auto) 4.5, Eos % (Auto) 2.5, Baso % (Auto) 1.2, Neut # (Auto) 9.4 H, Lymph # (Auto) 2.3, [place] # (Auto) 0.6, Eos # (Auto) 0.3, Baso # (Auto) 0
[2021-04-13 02:41] LABS: Lactic Acid 2.1 mmol/L (0.7-2.1)
--- NOTE | 2021-04-13 02:43 | CT_ITS ---
PROCEDURE INFORMATION: Exam: CT Head Without Contrast Exam date and time: 04/13/2021 2:43 AM Age: 85 years old Clinical indication: Other: Weakness TECHNIQUE: Imaging protocol: Computed tomography of the head without contrast. Radiation optimization: All CT scans at this facility use at least one of these dose optimization techniques: automated exposure control; mA and/or kV adjustment per patient size (includes targeted exams where dose is matched to clinical indication); or iterative reconstruction. COMPARISON: CT FACIAL BONES WO CON 04/04/2021 3:01 PM FINDINGS: Brain: There is diffuse prominence of the cerebral sulci, cisterns, and ventricles consistent with atrophy. No intra or extra-axial fluid collections are noted. No mass or mass effect is seen. Periventricular white matter hypoattenuation is seen consistent with small vessel chronic ischemic changes. Cerebral ventricles: No ventriculomegaly. Paranasal sinuses: Visualized sinuses are unremarkable. No fluid levels. Mastoid air cells: Visualized mastoid air cells are well aerated. Bones/joints: Unremarkable. No acute fracture. Soft tissues: Unremarkable. IMPRESSION: No acute process identified.
--- NOTE | 2021-04-13 02:49 | ECG_ITS ---
APPROVED REPORT Exam: Resting ECG HR:73 bpm ECG Measurements Heart Rate 73 AXES QRSd 80 QRS 41 QT 366 T 259 QTc [address] & T wave abnormality, consider inferior ischemia or digitalis effect ST & T wave abnormality, consider anterolateral ischemia or digitalis effect Abnormal ECG Electronically signed by : Gordo Phillips, 04/13/2021 08:23:53
[2021-04-13 02:50] LABS: Activated Partial Thrombo Time 32.5 seconds (22.8-30.6)
[2021-04-13 04:53] LABS: POC Glucose,Bedside 385 (70-110)
--- NOTE | 2021-04-13 05:31 | PC.NURSE ---
Dr Valles speaking to Dr Gatica
[2021-04-13 05:53] LABS: Hemoglobin A1C > 14.0 % (4.0-6.0)
== END 2021-04-13 06:16 | disposition home or self-care (01) ==
PROVIDERS: Emergency Provider Emergency Medicine; PCP Internal Medicine Adolescent Medicine
DX: S32.10XA Unspecified fracture of sacrum, initial encounter for closed fracture (principal); W06.XXXA Fall from bed, initial encounter; Y92.003 Bedroom of unspecified non-institutional (private) residence as the place of occurrence of the external cause; N28.9 Disorder of kidney and ureter, unspecified; I48.0 Paroxysmal atrial fibrillation; E11.65 Type 2 diabetes mellitus with hyperglycemia; I10 Essential (primary) hypertension; Z79.899 Other long term (current) drug therapy
CPT/HCPCS: 70450; 71045; 72170; 74176; 80053; 80162; 81001; 82009; 82150; 82962; 83036; 83605; 83690; 84145; 85025; 85610; 85651; 85730; 86140; 87040; 93005; 96365; 96366; 96375; 99284; J2405; U0003

== ENCOUNTER → 2021-04-16 10:53 | Outpatient (CLI) | payer MEDICARE, SELFPAY ==
[2021-04-16 11:39] LABS: Basophils # 0.1 K/mm3 (0-0.2); Basophils % 1.1 % (0.1-2.0); Eosinophils # 0.3 K/mm3 (0.0-0.4); Eosinophils % 2.5 % (0.1-12.0); Hematocrit 43.8 % (37.0-47.0); Hemoglobin 14.3 g/dL (12.2-16.2); Lymphocytes # 2.6 K/mm3 (0.7-4.5); Lymphocytes % 22.4 % (10-50); Mean Corpuscular HGB Conc 32.6 g/dL (31.8-35.4); Mean Corpuscular Volume 91.9 fl (81-99); Mean Platelet Volume 10.5 fl (7.4-10.4); Monocytes # 0.6 K/mm3 (0.1-1.0); Monocytes % 5.5 % (1.7-9.3); Neutrophils # 7.8 K/mm3 (1.8-7.8); Neutrophils % 68.5 % (37.0-80.0); Platelet Count 92 K/mm3 (142-424); Red Blood Count 4.76 M/mm3 (4.20-5.40); Red Cell Distribution Width 15.4 % (11.5-17.5); White Blood Count 11.4 K/mm3 (4.8-10.8)
--- NOTE | 2021-04-16 11:58 | SW/DCPLANNER ---
Addendum entered by Marizol Suárez 04/17/21 10:23: SET UP HOME HEALTH SERVICES PER DR ADAMES IN HIS [place] OFFICE AND GAVE THE REFERRAL TO [facility] SINCE PATIENT IS FROM [place].. [facility] IS GOING TO ACCEPT REFERRAL AND MAKE CONTACT WITH PATIENT TODAY... Original Note: RECEIVED A CALL FROM DR ADAMES ASKING IF I COULD SET UP HOME HEALTH SERVICES FOR THIS PATIENT THAT WAS IN THE OFFICE IN [place] TODAY... I HAVE ATTEMPTED TO CALL PATIENT AND SEE WHO SHE WISHES TO USE, I HAVE LEFT A LENGTHY VOICE MESSAGE FOR HER TO CALL ME AND I WILL GIVE HER CHOICES AND GET HER SET UP FOR SERVICES TO START... WAITING ON A RETURN CALL...
[2021-04-16 12:37] LABS: Chloride 102 mmol/L (98-107); Potassium 4.4 mmoL/L (3.5-5.1); Sodium 135 mmol/L (136-145)
[2021-04-16 12:39] LABS: Hemoglobin A1C > 14.0 % (4.0-6.0)
[2021-04-16 12:40] LABS: Alanine Aminotransferase 44 U/L (12-78); Albumin Level 3.9 g/dl (3.5-5.0); Albumin/Globulin Ratio 1.3 (1.1-1.8); Alkaline Phosphatase 139 U/L (38-126); Anion Gap 12.4 mEq/L (5-15); Aspartate Amino Transferase 36 U/L (14-36); Bilirubin,Total 0.8 mg/dl (0.2-1.3); Blood Urea Nitrogen 27 mg/dl (7-17); Calcium 9.2 mg/dl (8.4-10.2); Carbon Dioxide 25 mmol/L (22.0-30.0); Estimated Glomerular Filt Rate 25 ml/min (>60); GFR (African American) 30 ML/MIN (>60); Globulin 3.1 g/dL (1.3-3.2); Glucose 346 mg/dl (74-100)
[2021-04-16 12:41] LABS: Magnesium 1.4 mg/dl (1.6-2.3)
[2021-04-16 13:13] LABS: Thyroid Stimulating Hormone 2.31 uIU/mL (0.465-4.68)
== END ==
PROVIDERS: Visit Provider Internal Medicine Adolescent Medicine
DX: E03.9 Hypothyroidism, unspecified (principal); E11.9 Type 2 diabetes mellitus without complications; Z79.84 Long term (current) use of oral hypoglycemic drugs
CPT/HCPCS: 36415; 80053; 83036; 83735; 84443; 85025

== ENCOUNTER → 2021-08-05 08:27 | Outpatient (CLI) | payer MEDICARE, SELFPAY ==
[2021-08-06 11:56] LABS: Basophils # 0.1 K/mm3 (0-0.2); Basophils % 0.9 % (0.1-2.0); Eosinophils # 0.4 K/mm3 (0.0-0.4); Hematocrit 47.1 % (37.0-47.0); Hemoglobin 15.1 g/dL (12.2-16.2); Lymphocytes # 2.6 K/mm3 (0.7-4.5); Lymphocytes % 22.7 % (10-50); Mean Corpuscular HGB Conc 32.1 g/dL (31.8-35.4); Mean Corpuscular Hemoglobin 30.5 pg (27.0-31.2); Monocytes # 0.7 K/mm3 (0.1-1.0); Monocytes % 6.4 % (1.7-9.3); Neutrophils # 7.7 K/mm3 (1.8-7.8); Neutrophils % 67.1 % (37.0-80.0); Platelet Count 171 K/mm3 (142-424); Red Blood Count 4.96 M/mm3 (4.20-5.40); Red Cell Distribution Width 14.7 % (11.5-17.5); White Blood Count 11.5 K/mm3 (4.8-10.8)
[2021-08-06 12:31] LABS: Chloride 106 mmol/L (98-107); Erythrocyte Sedimentation Rate 21 mm/hr (0-30)
[2021-08-06 12:32] LABS: Potassium 5.1 mmoL/L (3.5-5.1); Sodium 139 mmol/L (136-145)
[2021-08-06 12:34] LABS: Alanine Aminotransferase 30 U/L (12-78); Albumin Level 3.8 g/dl (3.5-5.0); Albumin/Globulin Ratio 1.3 (1.1-1.8); Alkaline Phosphatase 124 U/L (38-126); Anion Gap 13.1 mEq/L (5-15); Aspartate Amino Transferase 41 U/L (14-36); Bilirubin,Total 0.4 mg/dl (0.2-1.3); Blood Urea Nitrogen 26 mg/dl (7-17); Carbon Dioxide 25 mmol/L (22.0-30.0); Estimated Glomerular Filt Rate 33 ml/min (>60); GFR (African American) 40 ML/MIN (>60); Globulin 2.9 g/dL (1.3-3.2); Total Protein,Serum 6.7 g/dl (6.3-8.2)
[2021-08-06 12:35] LABS: Calcium 9.1 mg/dl (8.4-10.2); Glucose 143 mg/dl (74-100)
[2021-08-06 12:43] LABS: C-Reactive Protein 44.3 mg/L (0-4)
[2021-08-06 13:04] LABS: Thyroid Stimulating Hormone 1.77 uIU/mL (0.465-4.68)
[2021-08-06 14:17] LABS: Hemoglobin A1C 7.5 % (4.0-6.0)
== END ==
PROVIDERS: Visit Provider Internal Medicine Adolescent Medicine
DX: I48.91 Unspecified atrial fibrillation (principal); E11.9 Type 2 diabetes mellitus without complications; E03.9 Hypothyroidism, unspecified; M35.3 Polymyalgia rheumatica; Z79.84 Long term (current) use of oral hypoglycemic drugs
CPT/HCPCS: 80053; 83036; 84443; 85025; 85651; 86140

== ENCOUNTER → 2021-08-07 09:03 | Outpatient (CLI) | payer MEDICARE, SELFPAY ==
[2021-08-07 14:35] LABS: INR 1.83 (0.9-1.1); Prothrombin Time 19.8 seconds (10.1-12.5)
== END ==
PROVIDERS: Visit Provider Internal Medicine Adolescent Medicine
DX: Z51.81 Encounter for therapeutic drug level monitoring (principal); Z79.01 Long term (current) use of anticoagulants; I48.91 Unspecified atrial fibrillation
CPT/HCPCS: 36415; 85610

== ENCOUNTER 2021-12-16 14:29 | Emergency (ER) | payer MEDICARE, SELFPAY ==
[2021-12-16] VITALS (11 sets, daily range): BP systolic 164–199; BP diastolic 71–118; PULSE 66–125; RESP 18–20; TEMP 36.7–37.1; O2SAT 96–98; BMI 28.3
--- NOTE | 2021-12-16 14:44 | HMH.EDDIZZ ---
ED Disposition Clinical Impression: Uncontrolled hypertension, Dizzy spells Headache Qualifiers: Headache type: unspecified Headache chronicity pattern: acute headache Intractability: not intractable Qualified Code(s): R51.9 - Headache, unspecified Disposition: Home, Self-Care Condition on Discharge: Good Additional Instructions: follow up pcp Referrals: Gordo Phillips MD [Primary Care Provider] - - Critical Care Critical Care Time: No Attestation: On 12/16/21, the high probability of a clinically significant, sudden or life threatening deterioration of the following system(s) required my full and direct attention, intervention and personal management. The time I documented below is in addition to time spent performing reported procedures but includes the following listed in this critical care notation. Medical Decision Making - Medical Records Medical records reviewed: Yes: I reviewed the patient's medical records. - Anders Inquiry Pt receiving controlled substance: No Vital Signs: 12/16/21 14:30 12/16/21 14:48 12/16/21 15:02 Temperature 98.7 F 98.1 F Temperature Source Oral Oral Pulse Rate 73 120 H Pulse Rate [Left Radial] 125 H Respiratory Rate 20 19 18 Blood Pressure 165/71 H 193/118 H Blood Pressure [Right Arm] 199/107 H Blood Pressure Mean 146 Blood Pressure Mean [Right Arm] 137 Blood Pressure Source Automatic Cuff Blood Pressure Source [Right Arm] Automatic Cuff Blood Pressure Position Supine Blood Pressure Position [Right Arm] Sitting 02 Sat by Pulse Oximetry 96 96 97 Oxygen Delivery Method Room Air Room Air 12/16/21 15:31 12/16/21 16:01 12/16/21 16:14 Temperature Temperature Source Pulse Rate 91 H 81 89 Pulse Rate [Left Radial] Respiratory Rate 18 18 18 Blood Pressure 196/97 H 172/101 H 165/71 H Blood Pressure [Right Arm] Blood Pressure Mean 130 125 102 Blood Pressure Mean [Right Arm] Blood Pressure Source Blood Pressure Source [Right Arm] Blood Pressure Position Blood Pressure Position [Right Arm] 02 Sat by Pulse Oximetry 97 98 98 Oxygen Delivery Method 12/16/21 16:28 12/16/21 16:29 12/16/21 16:50 Temperature Temperature Source Pulse Rate 79 94 H 76 Pulse Rate [Left Radial] Respiratory Rate 18 18 18 Blood Pressure 184/90 H 186/95 H 164/77 H Blood Pressure [Right Arm] Blood Pressure Mean 121 129 106 Blood Pressure Mean [Right Arm] Blood Pressure Source Blood Pressure Source [Right Arm] Blood Pressure Position Blood Pressure Position [Right Arm] 02 Sat by Pulse Oximetry 98 98 98 Oxygen Delivery Method - Lab Data Lab Results 12/16/21 14:45: WBC 8.6, RBC 5.01, Hgb 15.8, Hct 47.3 H, MCV 94.3, MCH 31.4 H, MCHC 33.3, RDW 15.1, Plt Count 189, MPV 8.8, Neut % (Auto) 68.5, Lymph % (Auto) 23.2, [place] % (Auto) 4.1, Eos % (Auto) 3.2, Baso % (Auto) 1.0, Neut # (Auto) 5.9, Lymph # (Auto) 2.0, [place] # (Auto) 0.4, Eos # (Auto) 0.3, Baso # (Auto) 0.1 12/16/21 14:45: Sodium 137, Potassium 4.1, Chloride 103, Carbon Dioxide 27, Anion Gap 11.1, BUN 23 H, Creatinine 1.30 H, Estimated Creat Clear 36, Estimated GFR 39 L, Est GFR ( Amer) 47 L, Glucose 176 H, Calcium 8.9, Total Bilirubin 0.8, AST 42 H, ALT 40, Alkaline Phosphatase 132 H, Troponin I < 0.01, Total Protein 7.6, Albumin 4.1, Globulin 3.5 H, Albumin/Globulin Ratio 1.2 Result diagrams: 12/16/21 14:45 12/16/21 14:45 Orders (Tests/Meds): ED MEDICATIONS Discontinued Medications Generic Name Dose Route Start Last Admin Trade Name Nilesh PRN Reason Stop Dose Admin Acetaminophen 1,000 mg 12/16/21 15:03 12/16/21 15:35 Acetaminophen 500mg Tab PO 12/16/21 15:04 1,000 mg ONCE ONE Administration Metoprolol Tartrate 5 mg 12/16/21 15:48 12/16/21 16:34 Metoprolol Tartrate 5mg/5ml Vial IV 12/16/21 15:49 2.5 mg ONCE ONE Administration ORDERS Category Date Time Status Troponin I Q3H Lab 12/16/21 17:45 Ordered Tropo
--- NOTE | 2021-12-16 14:50 | ECG_ITS ---
APPROVED REPORT Exam: Resting ECG HR:94 bpm ECG Measurements Heart Rate 94 AXES QRSd 88 QRS 67 QT 305 T -60 QTc [address] DEVIATION AND MODERATE T-WAVE ABNORMALITY, CONSIDER LATERAL ISCHEMIA [-0.1+ mV T-WAVE IN I/aVL/V5/V6] ABNORMAL ECG UNCONFIRMED REPORT Electronically signed by : Gordo Phillips MD 12/18/2021 16:18:37
[2021-12-16 14:54] LABS: Basophils # 0.1 K/mm3 (0-0.2); Eosinophils # 0.3 K/mm3 (0.0-0.4); Eosinophils % 3.2 % (0.1-12.0); Hematocrit 47.3 % (37.0-47.0); Hemoglobin 15.8 g/dL (12.2-16.2); Lymphocytes % 23.2 % (10-50); Mean Corpuscular HGB Conc 33.3 g/dL (31.8-35.4); Mean Corpuscular Hemoglobin 31.4 pg (27.0-31.2); Mean Corpuscular Volume 94.3 fl (81-99); Mean Platelet Volume 8.8 fl (7.4-10.4); Monocytes # 0.4 K/mm3 (0.1-1.0); Monocytes % 4.1 % (1.7-9.3); Neutrophils # 5.9 K/mm3 (1.8-7.8); Neutrophils % 68.5 % (37.0-80.0); Platelet Count 189 K/mm3 (142-424); Red Blood Count 5.01 M/mm3 (4.20-5.40); Red Cell Distribution Width 15.1 % (11.5-17.5); White Blood Count 8.6 K/mm3 (4.8-10.8)
[2021-12-16 14:59] LABS: Chloride 103 mmol/L (98-107); Potassium 4.1 mmoL/L (3.5-5.1); Sodium 137 mmol/L (136-145)
[2021-12-16 15:02] LABS: Alanine Aminotransferase 40 U/L (12-78); Albumin Level 4.1 g/dl (3.5-5.0); Albumin/Globulin Ratio 1.2 (1.1-1.8); Alkaline Phosphatase 132 U/L (38-126); Anion Gap 11.1 mEq/L (5-15); Aspartate Amino Transferase 42 U/L (14-36); Bilirubin,Total 0.8 mg/dl (0.2-1.3); Blood Urea Nitrogen 23 mg/dl (7-17); Carbon Dioxide 27 mmol/L (22.0-30.0); Creatinine Clearance Estimated 36 mL/min (50-200); Estimated Glomerular Filt Rate 39 ml/min (>60); GFR (African American) 47 ML/MIN (>60); Globulin 3.5 g/dL (1.3-3.2); Total Protein,Serum 7.6 g/dl (6.3-8.2)
[2021-12-16 15:03] LABS: Calcium 8.9 mg/dl (8.4-10.2); Glucose 176 mg/dl (74-100)
--- NOTE | 2021-12-16 15:03 | CT_ITS ---
FINAL REPORT CLINICAL HISTORY: perez, nausea, elev bp, coumadin COMPARISON: 04/13/2021 FINDINGS: Axial images of the head were obtained without contrast. Coronal reformatted images were also obtained. This study was performed with techniques to keep radiation doses as low as reasonably achievable (ALARA). Individualized dose reduction techniques using automated exposure control or adjustment of mA and/or kV according to the patient's size were employed. There is generalized age-appropriate atrophy. Periventricular low-attenuation areas are seen consistent with mild chronic ischemic changes. There is no evidence of intracranial hemorrhage or mass. There is no evidence of acute infarct. There is no evidence of shift of the midline structures. No skull abnormality is seen on the bone window images. Note is made of fluid in the right sphenoid sinus. IMPRESSION: Atrophy and mild periventricular chronic ischemic changes. No acute intracranial abnormality identified. Reviewed, Interpreted and Dictated by John Emanuel III, MD Transcribed by Destini Mark Authenticated by John Emanuel III, MD on 12/16/2021 03:45:00 PM [facility]
[2021-12-16 15:17] LABS: Troponin I < 0.01 ng/ml (0.00-0.034)
--- NOTE | 2021-12-16 16:27 | PC.NURSE ---
METOPROLOL HELD DUE TO B/P LOWERING ON ITS OWN
== END 2021-12-16 17:21 | disposition home or self-care (01) ==
PROVIDERS: Emergency Provider Emergency Medicine; PCP Internal Medicine Adolescent Medicine
DX: R42 Dizziness and giddiness (principal); I10 Essential (primary) hypertension; E11.9 Type 2 diabetes mellitus without complications; I48.0 Paroxysmal atrial fibrillation; E78.5 Hyperlipidemia, unspecified; Z79.899 Other long term (current) drug therapy
CPT/HCPCS: 70450; 80053; 84484; 85025; 93005; 96374; 99284

== ENCOUNTER → 2021-12-26 09:07 | Outpatient (CLI) | payer MEDICARE, SELFPAY ==
--- NOTE | 2021-12-26 09:18 | CA_ITS ---
FINAL REPORT TECHNIQUE: Color Doppler, duplex Doppler and de jesus scale sonography of the bilateral neck arterial vasculature was performed. Velocities were measured in the carotid arteries. Stenosis evaluation based on the validated velocity criteria. CLINICAL HISTORY: .FACIAL PAIN, HTN FINDINGS: The peak systolic velocity of the right common carotid artery is 68 cm/s. The peak systolic velocity of the right internal carotid artery is 78 cm/s and end diastolic velocity 23 cm/s. The ICA/CCA ratio is 1.25. A mild amount of plaque is present. The right external carotid artery is patent. The right vertebral artery is patent with antegrade flow. The peak systolic velocity of the left common carotid artery is 90 cm/s. The peak systolic velocity of the left internal carotid artery is 66 cm/s and end diastolic velocity 18 cm/s. The ICA/CCA ratio is 0.98. A mild amount of plaque is present. The left external carotid artery is patent.The left vertebral artery is patent with antegrade flow. IMPRESSION: Less than 50% bilateral carotid stenosis. Bilateral patent vertebral arteries with antegrade flow. Reviewed, Interpreted and Dictated by John Emanuel III, MD Transcribed by Dora Abbasi Authenticated by John Emanuel III, MD on 12/26/2021 11:11:[address] [facility]
== END ==
PROVIDERS: PCP Internal Medicine Adolescent Medicine; Visit Provider Internal Medicine Adolescent Medicine
DX: R42 Dizziness and giddiness (principal); R51.9 Headache, unspecified; I10 Essential (primary) hypertension
CPT/HCPCS: 93880

== ENCOUNTER 2022-01-08 20:17 | Observation (INO) | payer MEDICARE, SELFPAY ==
[2022-01-08 20:18] VITALS: BP 195/105; PULSE 85; RESP 16; TEMP 36.9; O2SAT 96; BMI 27.6
--- NOTE | 2022-01-08 20:25 | ECG_ITS ---
APPROVED REPORT Exam: Resting ECG HR:64 bpm ECG Measurements Heart Rate 64 AXES QRSd 93 QRS 17 QT 380 T 0 QTc 389 Conclusion ATRIAL FIBRILLATION NONSPECIFIC ST & T-WAVE ABNORMALITY ABNORMAL RHYTHM ECG UNCONFIRMED REPORT Electronically signed by : Gordo Phillips MD 01/10/2022 12:15:05
--- NOTE | 2022-01-08 20:37 | CT_ITS ---
PROCEDURE INFORMATION: Exam: CT Head Without Contrast Exam date and time: 01/08/2022 10:02 PM Age: 86 years old Clinical indication: Other: Headache/ HTN TECHNIQUE: Imaging protocol: Computed tomography of the head without contrast. Radiation optimization: All CT scans at this facility use at least one of these dose optimization techniques: automated exposure control; mA and/or kV adjustment per patient size (includes targeted exams where dose is matched to clinical indication); or iterative reconstruction. Other technique: STROKE PROTOCOL was implemented. COMPARISON: CT HEAD/BRAIN WO CON 12/16/2021 3:13 PM FINDINGS: Brain: Periventricular and subcortical small vessel ischemic changes. Age-appropriate atrophy associated. No acute hemorrhage, mass effect, midline shift, or extra-axial fluid collection. Cerebral ventricles: No ventriculomegaly. Cerebral ventricles: No ventriculomegaly. Paranasal sinuses: Visualized sinuses are unremarkable. No fluid levels. Mastoid air cells: Visualized mastoid air cells are well aerated. Bones/joints: Unremarkable. No acute fracture. Soft tissues: Unremarkable. IMPRESSION: No acute intracranial abnormality. ASSESSMENT: ASPECTS ([place] Stroke Program Early CT Score) is 10.
--- NOTE | 2022-01-08 20:38 | CT_ITS ---
PROCEDURE INFORMATION: Exam: CT Angiography Head With Contrast, Arteriography Exam date and time: 01/08/2022 10:04 PM Age: 86 years old Clinical indication: Vertigo; Additional info: Central vertigo TECHNIQUE: Imaging protocol: Computed tomography angiography of the head with contrast. Exam focused on the arteries. 3D rendering (Not supervised by radiologist): MIP and/or 3D reconstructed images were created by the technologist. Radiation optimization: All CT scans at this facility use at least one of these dose optimization techniques: automated exposure control; mA and/or kV adjustment per patient size (includes targeted exams where dose is matched to clinical indication); or iterative reconstruction. Contrast material: ISOVUE; Contrast volume: 100 ml; Contrast route: INTRAVENOUS (IV); COMPARISON: CT HEAD/BRAIN WO CON 01/08/2022 10:02 PM FINDINGS: ANTERIOR CIRCULATION: Right internal carotid artery: Unremarkable. Intracranial segment is patent with no significant stenosis. No aneurysm. Right middle cerebral artery: Unremarkable. No occlusion or significant stenosis. No aneurysm. Right anterior cerebral artery: Unremarkable. No occlusion or significant stenosis. No aneurysm. Left internal carotid artery: Unremarkable. Intracranial segment is patent with no significant stenosis. No aneurysm. Left middle cerebral artery: Unremarkable. No occlusion or significant stenosis. No aneurysm. Left anterior cerebral artery: Unremarkable. No occlusion or significant stenosis. No aneurysm. POSTERIOR CIRCULATION: Right vertebral artery: Unremarkable. No occlusion or significant stenosis. No aneurysm. Left vertebral artery: Unremarkable. No occlusion or significant stenosis. No aneurysm. Basilar artery: Unremarkable. No occlusion or significant stenosis. No aneurysm. Right posterior cerebral artery: Unremarkable. No occlusion or significant stenosis. No aneurysm. Left posterior cerebral artery: Unremarkable. No occlusion or significant stenosis. No aneurysm. Brain: No definite mass, mass effect, or midline shift. Cerebral ventricles: No ventriculomegaly. Bones/joints: Unremarkable. No acute fracture. Soft tissues: Unremarkable. IMPRESSION: No large vessel stenosis or occlusion.
--- NOTE | 2022-01-08 20:38 | CT_ITS ---
PROCEDURE INFORMATION: Exam: CT Angiography Neck With Contrast Exam date and time: 01/08/2022 10:04 PM Age: 86 years old Clinical indication: Vertigo; Additional info: Central vertigo TECHNIQUE: Imaging protocol: Computed tomography angiography of the neck with contrast. 3D rendering (Not supervised by radiologist): MIP and/or 3D reconstructed images were created by the technologist. Radiation optimization: All CT scans at this facility use at least one of these dose optimization techniques: automated exposure control; mA and/or kV adjustment per patient size (includes targeted exams where dose is matched to clinical indication); or iterative reconstruction. Contrast material: ISOVUE; Contrast volume: 100 ml; Contrast route: INTRAVENOUS (IV); COMPARISON: NECKWO CT soft tissue neck wo con 09/09/2018 12:04 AM FINDINGS: Right common carotid artery: No stenosis. No dissection or occlusion. Right internal carotid artery: No stenosis of the extracranial segment. No dissection or occlusion. Right external carotid artery: No occlusion or stenosis of the origin. Left common carotid artery: No stenosis. No dissection or occlusion. Left internal carotid artery: No stenosis of the extracranial segment. No dissection or occlusion. Left external carotid artery: No occlusion or stenosis of the origin. Right vertebral artery: No stenosis. No dissection or occlusion. Left vertebral artery: No stenosis. No dissection or occlusion. Soft tissues: Normal. No significant soft tissue swelling. Bones/joints: No acute fracture. IMPRESSION: No stenosis or occlusion. REFERENCES: NASCET CRITERIA. The degree of internal carotid artery stenosis is based on NASCET criteria. Normal is no stenosis. Mild is less than 50% stenosis. Moderate is 50-69% stenosis. Severe is 70% to 99% stenosis. Total occlusion is no detectable patent lumen.
--- NOTE | 2022-01-08 20:49 | HMH.EDDIZZ ---
ED Disposition Clinical Impression: Hypertension, Dizziness, Hypertensive urgency Disposition: Admitted as Observation Condition on Discharge: Good - Critical Care Critical Care Time: No Attestation: On 01/08/22, the high probability of a clinically significant, sudden or life threatening deterioration of the following system(s) required my full and direct attention, intervention and personal management. The time I documented below is in addition to time spent performing reported procedures but includes the following listed in this critical care notation. Medical Decision Making - Medical Records Medical records reviewed: Yes: I reviewed the patient's medical records. - Anders Inquiry Pt receiving controlled substance: No Vital Signs: 01/08/22 20:18 01/08/22 21:00 01/08/22 22:00 Temperature 98.5 F Temperature Source Oral Pulse Rate 60 Pulse Rate [Right] 85 Respiratory Rate 16 17 18 Blood Pressure 194/97 H 192/101 H Blood Pressure [Right Arm] 195/105 H Blood Pressure Mean 131 Blood Pressure Mean [Right Arm] 135 Blood Pressure Source [Right Arm] Automatic Cuff 02 Sat by Pulse Oximetry 96 97 96 Oxygen Delivery Method Room Air Room Air Room Air 01/08/22 22:31 01/08/22 22:50 01/08/22 23:01 Temperature Temperature Source Pulse Rate 66 61 Pulse Rate [Right] Respiratory Rate 15 18 Blood Pressure 191/81 H 191/81 H 177/87 H Blood Pressure [Right Arm] Blood Pressure Mean 117 117 Blood Pressure Mean [Right Arm] Blood Pressure Source [Right Arm] 02 Sat by Pulse Oximetry 97 98 Oxygen Delivery Method Room Air Room Air 01/09/22 00:07 Temperature 98.2 F Temperature Source Oral Pulse Rate 62 Pulse Rate [Right] Respiratory Rate 17 Blood Pressure 187/81 H Blood Pressure [Right Arm] Blood Pressure Mean Blood Pressure Mean [Right Arm] Blood Pressure Source [Right Arm] 02 Sat by Pulse Oximetry Oxygen Delivery Method Room Air - Lab Data Lab Results 01/08/22 20:32: WBC 9.0, RBC 4.86, Hgb 15.1, Hct 46.3, MCV 95.1, MCH 31.1, MCHC 32.7, RDW 14.8, Plt Count 169, MPV 8.9, Neut % (Auto) 56.4, Lymph % (Auto) 29.4, [place] % (Auto) 5.6, Eos % (Auto) 5.8, Baso % (Auto) 2.8 H, Neut # (Auto) 5.1, Lymph # (Auto) 2.6, [place] # (Auto) 0.5, Eos # (Auto) 0.5 H, Baso # (Auto) 0.3 H 01/08/22 20:32: PT 12.1, INR 1.08 01/08/22 20:32: Sodium 138, Potassium 4.0, Chloride 106, Carbon Dioxide 26, Anion Gap 10.0, BUN 32 H, Creatinine 1.50 H, Estimated Creat Clear 30, Estimated GFR 33 L, Est GFR ( Amer) 40 L, Glucose 158 H, Calcium 8.7, Total Bilirubin 0.6, AST 51 H, ALT 38, Alkaline Phosphatase 112, Troponin I < 0.01, Total Protein 7.1, Albumin 4.0, Globulin 3.1, Albumin/Globulin Ratio 1.3 01/08/22 20:32: Digoxin 0.80 01/08/22 20:32: NT-Pro-B Natriuret Pep 1960 H 01/08/22 21:02: Urine Color Yellow, Urine Appearance Clear, Urine pH 6.0, Ur Specific [place] 1.015, Urine Protein 2+, Urine Glucose (UA) Negative, Urine Ketones Negative, Urine Blood 1+, Urine Nitrate Negative, Urine Bilirubin Negative, Urine Urobilinogen 0.2, Ur Leukocyte Esterase Negative, Urine RBC 5-10, Urine WBC None, Ur Squamous Epith Cells 3-5, Urine Bacteria None 01/08/22 23:11: SARS-CoV-2 (PCR) Not detected, Influenza A Untype (PCR) Not detected, Influenza Type B (PCR) Not detected Result diagrams: 01/08/22 20:32 01/08/22 20:32 Orders (Tests/Meds): ED MEDICATIONS Generic Name Dose Route Start Last Admin Trade Name Freq PRN Reason Stop Dose Admin Acetaminophen 650 mg 01/08/22 23:50 Acetaminophen 325mg Tab PO 02/07/22 23:49 Q4HP PRN Fever or Mild Pain Allopurinol 150 mg 01/09/22 09:00 Allopurinol 300mg Tablet PO 02/08/22 08:59 DAILY GABI Celecoxib 100 mg 01/09/22 09:00 Celecoxib 100mg Capsule PO 02/08/22 08:59 BID [facility] Digoxin 0.125 mcg 01/09/22 09:00 Digoxin 0.125mg Tablet PO 02/08/22 08:59 DAILY GABI Docusate Sodium 100 mg 01/09/22 09:00 Docusate Sodium
[2022-01-08 20:52] LABS: Basophils # 0.3 K/mm3 (0-0.2); Basophils % 2.8 % (0.1-2.0); Eosinophils # 0.5 K/mm3 (0.0-0.4); Eosinophils % 5.8 % (0.1-12.0); Hematocrit 46.3 % (37.0-47.0); Hemoglobin 15.1 g/dL (12.2-16.2); Lymphocytes # 2.6 K/mm3 (0.7-4.5); Lymphocytes % 29.4 % (10-50); Mean Corpuscular HGB Conc 32.7 g/dL (31.8-35.4); Mean Corpuscular Hemoglobin 31.1 pg (27.0-31.2); Mean Corpuscular Volume 95.1 fl (81-99); Mean Platelet Volume 8.9 fl (7.4-10.4); Monocytes # 0.5 K/mm3 (0.1-1.0); Monocytes % 5.6 % (1.7-9.3); Neutrophils # 5.1 K/mm3 (1.8-7.8); Neutrophils % 56.4 % (37.0-80.0); Platelet Count 169 K/mm3 (142-424); Red Blood Count 4.86 M/mm3 (4.20-5.40); Red Cell Distribution Width 14.8 % (11.5-17.5)
[2022-01-08 20:54] LABS: Chloride 106 mmol/L (98-107); Sodium 138 mmol/L (136-145)
[2022-01-08 20:56] LABS: Alanine Aminotransferase 38 U/L (12-78); Aspartate Amino Transferase 51 U/L (14-36); Blood Urea Nitrogen 32 mg/dl (7-17); Creatinine Clearance Estimated 30 mL/min (50-200); Estimated Glomerular Filt Rate 33 ml/min (>60); GFR (African American) 40 ML/MIN (>60)
[2022-01-08 20:57] LABS: Albumin/Globulin Ratio 1.3 (1.1-1.8); Alkaline Phosphatase 112 U/L (38-126); Bilirubin,Total 0.6 mg/dl (0.2-1.3); Calcium 8.7 mg/dl (8.4-10.2); Carbon Dioxide 26 mmol/L (22.0-30.0); Globulin 3.1 g/dL (1.3-3.2); Glucose 158 mg/dl (74-100); Total Protein,Serum 7.1 g/dl (6.3-8.2)
[2022-01-08 20:58] LABS: INR 1.08 (0.9-1.1); Prothrombin Time 12.1 seconds (10.1-12.5)
[2022-01-08 21:00] VITALS: BP 194/97; RESP 17; O2SAT 97
[2022-01-08 21:06] LABS: NT Pro Brain Natriuretic Pep. 1960 pg/mL (0-450)
[2022-01-08 21:10] LABS: Troponin I < 0.01 ng/ml (0.00-0.034)
[2022-01-08 21:10] LABS: Microscopic, Urine URINE MICROSCOPIC (MICROSCOPIC)
--- NOTE | 2022-01-08 21:12 | PC.NURSE ---
Pt able to ambulate to bathroom with minimal assistance
[2022-01-08 21:14] LABS: Appearance,Urine CLEAR (Clear); Bilirubin,Urine Negative (Negative); Blood, Urine 1+ (Negative); Color,Urine YELLOW (Yellow); Glucose,Urine (UA) Negative (Negative); Ketones,Urine Negative (Negative); Leukocyte Esterase,Urine Negative (Negative); Nitrate,Urine Negative (Negative); Protein,Urine 2+ (Negative); Specific Gravity, Urine 1.015 (1.005-1.030); Urobilinogen,Urine 0.2 EU/dl (0.2)
--- NOTE | 2022-01-08 21:33 | PC.NURSE ---
Pt gone to RAD
[2022-01-08 22:00] VITALS: BP 192/101; PULSE 60; RESP 18; O2SAT 96
--- NOTE | 2022-01-08 22:01 | PC.NURSE ---
Pt gone to RAD
--- NOTE | 2022-01-08 22:15 | PC.NURSE ---
Pt back from RAD
[2022-01-08 22:31] VITALS: BP 191/81; PULSE 66; RESP 15; O2SAT 97
[2022-01-08 22:50] VITALS: BP 191/81
[2022-01-08 23:01] VITALS: BP 177/87; PULSE 61; RESP 18; O2SAT 98
--- NOTE | 2022-01-08 23:06 | PC.NURSE ---
Dr. Vazquez paged
--- NOTE | 2022-01-08 23:08 | PC.NURSE ---
DENNIS FLORES speaking with Dr. Vazquez
[2022-01-08 23:15] LABS: Coronavirus 19, PCR Not Detected (NotDetected); Influenza A, PCR Not Detected (NotDetected); Influenza B, PCR Not Detected (NotDetected)
--- NOTE | 2022-01-08 23:16 | PC.NURSE ---
Notified rooming house inspector of pt admission and need for bed assignment
[2022-01-08 23:26] VITALS: BMI 27.2
[2022-01-09] VITALS (7 sets, daily range): BP systolic 107–187; BP diastolic 71–90; PULSE 62–77; RESP 17–20; TEMP 36.4–36.8; O2SAT 96–100
--- NOTE | 2022-01-09 00:24 | PC.NURSE ---
patient up to floor via wheelchair @ this time.
[2022-01-09 00:59] LABS: Troponin I 0.01 ng/ml (0.00-0.034)
[2022-01-09 01:00] LABS: POC Glucose,Bedside 122 (70-110)
--- NOTE | 2022-01-09 01:25 | PC.NURSE ---
Patient refusing scuds at time of admission. Education provided to patient who still wishes to refuses scuds.
[2022-01-09 05:36] LABS: POC Glucose,Bedside 110 (70-110)
[2022-01-09 07:01] LABS: Chloride 107 mmol/L (98-107); Sodium 137 mmol/L (136-145)
[2022-01-09 07:02] LABS: Potassium 3.8 mmoL/L (3.5-5.1)
[2022-01-09 07:04] LABS: Blood Urea Nitrogen 28 mg/dl (7-17); Creatinine Clearance Estimated 34 mL/min (50-200); Estimated Glomerular Filt Rate 39 ml/min (>60); GFR (African American) 47 ML/MIN (>60)
[2022-01-09 07:05] LABS: Anion Gap 7.8 mEq/L (5-15); Calcium 8.3 mg/dl (8.4-10.2); Carbon Dioxide 26 mmol/L (22.0-30.0); Glucose 110 mg/dl (74-100)
--- NOTE | 2022-01-09 07:21 | HMH.HPDC ---
General - General Admission date:: 01/09/22 Discharge date: 01/09/22 *Admission Date: 01/09/22 *Chief complaint: dizziness *History of present illness: Ms. Banks is a pleasant 86-year-old female presented to the ER with complaint of dizziness. Concern for vertigo and posterior headache on exam. Found to be profoundly hypertensive on arrival with systolics in the 220 range. Had some slight decrease down to 190/110. Work-up initiated including labs, troponin, EKG, and imaging of her head. For posterior stroke, negative. Given her hypertensive urgency with neurologic symptoms, patient admitted to medicine for further management and monitoring of improvement in symptoms with treatment of her blood pressure. The ER, troponins are negative BNP is slightly elevated but patient has baseline heart failure based on age and does not appear volume overloaded. Mild transaminitis with no significant acute renal function on top of her chronic renal disease. [facility] History I have reviewed the patient's past medical history: Yes Medical History: Reports:: Arrhythmia, Atrial Fibrillation, Cancer (SKin cancer removed 2020), Congestive Heart Failure, Diabetes Mellitus Type 2, Hyperlipidemia, Hypertension Denies:: Diabetes Mellitus Type 1, Internal Pacemaker, MRSA, Seizures *Have you ever received a pneumonia vaccine?: Yes *Have you received a flu vaccine this season?: No Other Medical History: Denies: Blood Transfusion Reaction Laterality Cases: Right: ACL Repair Other Surgeries: Yes: Tubal Ligation. No: Pacemaker Amputation: No Fractures: No - *Social History Smoking Status: Never smoker Alcohol Intake: never Substance Use Type: denies use *Occupational Status:: retired Housing: house Household Members: none *Travel in the last 8 weeks: None Family Hx:: Hypertension Review of Systems - Review of Systems Review of systems:: pertinent systems reviewed and negative unless documented below (14 point review of systems performed, pertinent positives and negatives as per HPI) Exam Vital signs and Labs for Last 24 Hours: Temp Pulse Resp BP Pulse Ox 97.9 F 63 20 107/71 L 96 01/09/22 04:42 01/09/22 04:42 01/09/22 04:42 01/09/22 04:42 01/09/22 04:42 Laboratory Results - last 24 hr 01/08/22 20:32: WBC 9.0, RBC 4.86, Hgb 15.1, Hct 46.3, MCV 95.1, MCH 31.1, MCHC 32.7, RDW 14.8, Plt Count 169, MPV 8.9, Neut % (Auto) 56.4, Lymph % (Auto) 29.4, [place] % (Auto) 5.6, Eos % (Auto) 5.8, Baso % (Auto) 2.8 H, Neut # (Auto) 5.1, Lymph # (Auto) 2.6, [place] # (Auto) 0.5, Eos # (Auto) 0.5 H, Baso # (Auto) 0.3 H 01/08/22 20:32: PT 12.1, INR 1.08 01/08/22 20:32: Sodium 138, Potassium 4.0, Chloride 106, Carbon Dioxide 26, Anion Gap 10.0, BUN 32 H, Creatinine 1.50 H, Estimated Creat Clear 30, Estimated GFR 33 L, Est GFR ( Amer) 40 L, Glucose 158 H, Calcium 8.7, Total Bilirubin 0.6, AST 51 H, ALT 38, Alkaline Phosphatase 112, Troponin I < 0.01, Total Protein 7.1, Albumin 4.0, Globulin 3.1, Albumin/Globulin Ratio 1.3 01/08/22 20:32: Digoxin 0.80 01/08/22 20:32: NT-Pro-B Natriuret Pep 1960 H 01/08/22 21:02: Urine Color Yellow, Urine Appearance Clear, Urine pH 6.0, Ur Specific [place] 1.015, Urine Protein 2+, Urine Glucose (UA) Negative, Urine Ketones Negative, Urine Blood 1+, Urine Nitrate Negative, Urine Bilirubin Negative, Urine Urobilinogen 0.2, Ur Leukocyte Esterase Negative, Urine RBC 5-10, Urine WBC None, Ur Squamous Epith Cells 3-5, Urine Bacteria None 01/08/22 23:11: SARS-CoV-2 (PCR) Not detected, Influenza A Untype (PCR) Not detected, Influenza Type B (PCR) Not detected 01/09/22 00:15: Troponin I 0.01 01/09/22 00:40: POC Glucose 122 H 01/09/22 05:28: POC Glucose 110 01/09/22 06:08: Sodium 137, Potassium 3.8, Chloride 107, Carbon Dioxide 26, Anion Gap 7.8, BUN 28 H, Creatinine 1.30 H, Estimated Creat Clear 34, Estimated GFR 39 L, Est GFR ( Amer) 47 L, Glucose 110 H D, Calcium 8.3 L I & O for Last 24 hours: Intake & Output 01/06/22
[2022-01-09 07:30] LABS: Basophils # 0.1 K/mm3 (0-0.2); Basophils % 1.4 % (0.1-2.0); Eosinophils # 0.6 K/mm3 (0.0-0.4); Hematocrit 43.5 % (37.0-47.0); Hemoglobin 13.7 g/dL (12.2-16.2); Lymphocytes # 2.6 K/mm3 (0.7-4.5); Lymphocytes % 32.7 % (10-50); Mean Corpuscular HGB Conc 31.5 g/dL (31.8-35.4); Mean Corpuscular Hemoglobin 30.5 pg (27.0-31.2); Mean Corpuscular Volume 96.8 fl (81-99); Mean Platelet Volume 10.1 fl (7.4-10.4); Monocytes # 0.5 K/mm3 (0.1-1.0); Monocytes % 6.2 % (1.7-9.3); Neutrophils # 4.2 K/mm3 (1.8-7.8); Neutrophils % 52.7 % (37.0-80.0); Platelet Count 117 K/mm3 (142-424); Red Cell Distribution Width 14.9 % (11.5-17.5); White Blood Count 7.9 K/mm3 (4.8-10.8)
--- NOTE | 2022-01-09 07:48 | P.CONPHA_ITS ---
[facility] Pharmacy VTE Monitoring - Patient Demographics Admission date: 01/09/22 Report Date: 01/09/22 Time: 07:48 Allergies/Adverse Reactions: Patient Allergies albuterol Allergy (Severe, Verified 01/23/21 13:29) Swelling of Lip/Tongue/Throat erythromycin base Allergy (Severe, Verified 01/23/21 13:29) Swelling of Lip/Tongue/Throat Penicillins Allergy (Severe, Verified 01/23/21 13:29) Swelling of Lip/Tongue/Throat Height: 1.6 m Weight: 69.808 kg Patient Problems: Current Active Problems Hypertension (Acute) Dizziness (Acute) Hypertensive urgency (Acute) - VTE Risk Labs: VTE Related Lab Results Hgb 13.7 g/dL (12.2-16.2) 01/09/22 06:08 Hct 43.5 % (37.0-47.0) 01/09/22 06:08 Plt Count 117 K/mm3 (142-424) L D 01/09/22 06:08 PT 12.1 seconds (10.1-12.5) 01/08/22 20:32 INR 1.08 (0.9-1.1) 01/08/22 20:32 BUN 28 mg/dl (7-17) H 01/09/22 06:08 Creatinine 1.30 mg/dl (0.52-1.04) H 01/09/22 06:08 Estimated Creat Clear 34 mL/min (50-200) 01/09/22 06:08 Was VTE Risk Assessment Performed: Yes VTE Score: 3 VTE Risk Level: Low Risk Clinical Trial Participant: No - Prophylaxis VTE Prophylaxis Ordered?: Yes Types of VTE Prophylaxis: IPCS Knee High, Pharmacological Pharmacologic Type: Warfarin
--- NOTE | 2022-01-09 07:54 | HMH.PHAINT ---
home medication list verified using list from outpat pharmacy
--- NOTE | 2022-01-09 14:09 | HMH.PHAINT ---
DISCHARGE MEDICATION COUNSELING PROVIDED, DISCUSSED THE CHANGE TO THE LISINOPRIL FROM ONCE DAILY TO TWICE DAILY. COUNSELED TO WATCH FOR DIZZINESS OF LIGHTHEADEDNESS WHEN GOING FROM LAYING TO SITTING AND SITTING TO STANDING FOR THE FIRST COUPLE OF DAYS, IF DIZZINESS PERSISTS OR CAUSES ISSUES TO DISCUSS WITH MD. PATIENT ENDORSED NO QUESTIONS AT THIS TIME.
--- NOTE | 2022-01-12 15:44 | CARE MANAGER ---
Contacted patient regarding follow up from hospital discharge. She states that she is feeling better. She is taking all her medicine and monitoring her blood pressure. She is keeping track of her blood pressure to take to her follow up PCP appointment, but she is going to have to reschedule her appointment. Denies questions or concerns. NAHED Mcdaniels
== END 2022-01-09 14:43 | disposition home or self-care (01) ==
LOC: ER 20:29 → 2ND 23:24
PROVIDERS: Admitting Provider Family Medicine; Emergency Provider Student in an Organized Health Care Education/Training Program; PCP Internal Medicine Adolescent Medicine; Visit Provider Internal Medicine Adolescent Medicine
DX: I13.0 Hypertensive heart and chronic kidney disease with heart failure and stage 1 through stage 4 chronic kidney disease, or unspecified chronic kidney disease (principal); I50.9 Heart failure, unspecified; I48.91 Unspecified atrial fibrillation; N18.9 Chronic kidney disease, unspecified; E11.9 Type 2 diabetes mellitus without complications; E78.5 Hyperlipidemia, unspecified; Z79.899 Other long term (current) drug therapy; Z79.01 Long term (current) use of anticoagulants; Z79.4 Long term (current) use of insulin
CPT/HCPCS: G0378; 36415; 70450; 70496; 70498; 80048; 80053; 80162; 81001; 82962; 83880; 84484; 85025; 85610; 93005; 96375; 99285; C9803; Q9967; U0003; U0005

== ENCOUNTER → 2022-03-05 19:33 | Outpatient (CLI) | payer MEDICARE, SELFPAY ==
[2022-03-05 20:57] LABS: Anion Gap 10.3 mEq/L (5-15); Blood Urea Nitrogen 20 mg/dl (7-17); Calcium 9.4 mg/dl (8.4-10.2); Carbon Dioxide 26 mmol/L (22.0-30.0); Chloride 105 mmol/L (98-107); Estimated Glomerular Filt Rate 36 ml/min (>60); GFR (African American) 43 ML/MIN (>60); Glucose 100 mg/dl (74-100); Potassium 4.3 mmoL/L (3.5-5.1); Sodium 137 mmol/L (136-145)
[2022-03-05 21:11] LABS: Hemoglobin A1C 6.3 % (4.0-6.0)
== END ==
PROVIDERS: PCP Internal Medicine Adolescent Medicine; Referring Provider Internal Medicine Adolescent Medicine; Visit Provider Internal Medicine Adolescent Medicine
DX: E11.9 Type 2 diabetes mellitus without complications (principal); Z79.84 Long term (current) use of oral hypoglycemic drugs
CPT/HCPCS: 80048; 83036

== ENCOUNTER → 2022-06-11 06:14 | Outpatient (CLI) | payer MEDICARE, SELFPAY ==
[2022-06-11 18:46] LABS: Basophils # 0.1 K/mm3 (0-0.2); Eosinophils # 0.5 K/mm3 (0.0-0.4); Eosinophils % 3.6 % (0.1-12.0); Hematocrit 44.2 % (37.0-47.0); Lymphocytes % 21.3 % (10-50); Mean Corpuscular HGB Conc 31.8 g/dL (31.8-35.4); Mean Corpuscular Hemoglobin 30.6 pg (27.0-31.2); Mean Corpuscular Volume 96.3 fl (81-99); Mean Platelet Volume 11.1 fl (7.4-10.4); Monocytes # 0.8 K/mm3 (0.1-1.0); Monocytes % 5.9 % (1.7-9.3); Neutrophils # 9.5 K/mm3 (1.8-7.8); Neutrophils % 68.2 % (37.0-80.0); Platelet Count 146 K/mm3 (142-424); Red Blood Count 4.59 M/mm3 (4.20-5.40); Red Cell Distribution Width 15.6 % (11.5-17.5); White Blood Count 13.9 K/mm3 (4.8-10.8)
[2022-06-11 18:51] LABS: Alanine Aminotransferase 22 U/L (12-78); Albumin Level 3.8 g/dl (3.5-5.0); Albumin/Globulin Ratio 1.3 (1.1-1.8); Alkaline Phosphatase 133 U/L (38-126); Anion Gap 18.6 mEq/L (5-15); Aspartate Amino Transferase 52 U/L (14-36); Bilirubin,Total 0.7 mg/dl (0.2-1.3); Blood Urea Nitrogen 35 mg/dl (7-17); Calcium 8.9 mg/dl (8.4-10.2); Carbon Dioxide 22 mmol/L (22.0-30.0); Chloride 103 mmol/L (98-107); Estimated Glomerular Filt Rate 28 ml/min (>60); GFR (African American) 34 ML/MIN (>60); Glucose 100 mg/dl (74-100); Potassium 4.6 mmoL/L (3.5-5.1); Sodium 139 mmol/L (136-145); Total Protein,Serum 6.8 g/dl (6.3-8.2)
[2022-06-11 19:13] LABS: Hemoglobin A1C 6.3 % (4.0-6.0)
== END ==
PROVIDERS: PCP Internal Medicine Adolescent Medicine; Visit Provider Internal Medicine Adolescent Medicine
DX: E11.69 Type 2 diabetes mellitus with other specified complication (principal); Z79.4 Long term (current) use of insulin
CPT/HCPCS: 80053; 83036; 84443; 85025

== ENCOUNTER → 2022-09-10 10:15 | Outpatient (CLI) | payer MEDICARE, SELFPAY ==
[2022-09-10 18:30] LABS: Basophils # 0.1 K/mm3 (0-0.2); Eosinophils # 0.6 K/mm3 (0.0-0.4); Eosinophils % 4.5 % (0.1-12.0); Hematocrit 45.4 % (37.0-47.0); Hemoglobin 14.6 g/dL (12.2-16.2); Lymphocytes # 3.2 K/mm3 (0.7-4.5); Lymphocytes % 24.1 % (10-50); Mean Corpuscular HGB Conc 32.2 g/dL (31.8-35.4); Mean Corpuscular Hemoglobin 32.2 pg (27.0-31.2); Mean Corpuscular Volume 99.9 fl (81-99); Mean Platelet Volume 11.7 fl (7.4-10.4); Monocytes # 0.9 K/mm3 (0.1-1.0); Monocytes % 6.5 % (1.7-9.3); Neutrophils # 8.5 K/mm3 (1.8-7.8); Platelet Count 149 K/mm3 (142-424); Red Blood Count 4.54 M/mm3 (4.20-5.40); Red Cell Distribution Width 14.6 % (11.5-17.5); White Blood Count 13.3 K/mm3 (4.8-10.8)
[2022-09-10 18:55] LABS: Alanine Aminotransferase 28 U/L (12-78); Albumin Level 4.2 g/dl (3.5-5.0); Albumin/Globulin Ratio 1.3 (1.1-1.8); Alkaline Phosphatase 152 U/L (38-126); Anion Gap 14.7 mEq/L (5-15); Aspartate Amino Transferase 32 U/L (14-36); Bilirubin,Total 0.6 mg/dl (0.2-1.3); Blood Urea Nitrogen 28 mg/dl (7-17); Calcium 9.9 mg/dl (8.4-10.2); Carbon Dioxide 24 mmol/L (22.0-30.0); Chloride 104 mmol/L (98-107); Chol/HDL Ratio 5.3 (1-3.5); Cholesterol 196 mg/dl (140-200); Estimated Glomerular Filt Rate 25 ml/min (>60); GFR (African American) 30 ML/MIN (>60); Globulin 3.2 g/dL (1.3-3.2); Glucose 97 mg/dl (74-100); HDL Cholesterol 37 mg/dl (40-60); Potassium 4.7 mmoL/L (3.5-5.1); Sodium 138 mmol/L (136-145); Total Protein,Serum 7.4 g/dl (6.3-8.2); Triglycerides 299 mg/dl (30-150); VLDL Cholesterol 60 mg/dL (0-40)
[2022-09-10 19:09] LABS: Hemoglobin A1C 6.1 % (4.0-6.0)
[2022-09-10 19:25] LABS: Thyroid Stimulating Hormone 3.03 uIU/mL (0.465-4.68)
== END ==
PROVIDERS: PCP Family Medicine; Visit Provider Family Medicine
DX: I10 Essential (primary) hypertension (principal); R53.83 Other fatigue; Z00.00 Encounter for general adult medical examination without abnormal findings; E11.9 Type 2 diabetes mellitus without complications; Z79.4 Long term (current) use of insulin
CPT/HCPCS: 80053; 80061; 83036; 84443; 85025

== ENCOUNTER → 2022-09-18 15:00 | Outpatient (CLI) | payer MEDICARE, SELFPAY ==
[2022-09-18 18:45] LABS: INR 1.24 (0.9-1.1); Prothrombin Time 13.2 seconds (10.1-12.5)
== END ==
PROVIDERS: PCP Family Medicine; Visit Provider Family Medicine
DX: Z51.81 Encounter for therapeutic drug level monitoring (principal); Z79.01 Long term (current) use of anticoagulants; I48.91 Unspecified atrial fibrillation
CPT/HCPCS: 85610

== ENCOUNTER → 2022-10-09 02:20 | Outpatient (CLI) | payer MEDICARE, SELFPAY ==
[2022-10-09 17:43] LABS: INR 1.27 (0.9-1.1); Prothrombin Time 13.5 seconds (10.1-12.5)
== END ==
PROVIDERS: PCP Family Medicine; Visit Provider Family Medicine
DX: I48.91 Unspecified atrial fibrillation (principal); Z51.81 Encounter for therapeutic drug level monitoring; Z79.01 Long term (current) use of anticoagulants
CPT/HCPCS: 85610

== ENCOUNTER → 2022-11-11 23:30 | Outpatient (CLI) | payer MEDICARE, SELFPAY ==
[2022-11-11 17:57] LABS: INR 1.43 (0.9-1.1); Prothrombin Time 15.1 seconds (10.1-12.5)
== END ==
PROVIDERS: PCP Family Medicine; Visit Provider Family Medicine
DX: I48.91 Unspecified atrial fibrillation (principal); Z51.81 Encounter for therapeutic drug level monitoring; Z79.01 Long term (current) use of anticoagulants
CPT/HCPCS: 85610

== ENCOUNTER → 2022-12-10 23:28 | Outpatient (CLI) | payer MEDICARE, SELFPAY ==
[2022-12-10 17:29] LABS: Chloride 103 mmol/L (98-107); Sodium 137 mmol/L (136-145)
[2022-12-10 17:30] LABS: Potassium 4.6 mmoL/L (3.5-5.1)
[2022-12-10 17:33] LABS: Anion Gap 14.6 mEq/L (5-15); Blood Urea Nitrogen 29 mg/dl (7-17); Calcium 9.2 mg/dl (8.4-10.2); Carbon Dioxide 24 mmol/L (22.0-30.0); Estimated Glomerular Filt Rate 28 ml/min (>60); GFR (African American) 34 ML/MIN (>60); Glucose 116 mg/dl (74-100)
[2022-12-10 17:36] LABS: INR 2.47 (0.9-1.1); Prothrombin Time 25.3 seconds (10.1-12.5)
== END ==
PROVIDERS: PCP Family Medicine; Visit Provider Family Medicine
DX: I48.91 Unspecified atrial fibrillation (principal)
CPT/HCPCS: 80048; 83036; 85610

== ENCOUNTER → 2022-12-28 17:24 | Outpatient (CLI) | payer MEDICARE, SELFPAY ==
[2022-12-28 16:52] LABS: INR 2.03 (0.9-1.1); Prothrombin Time 21.1 seconds (10.1-12.5)
== END ==
PROVIDERS: PCP Family Medicine; Visit Provider Family Medicine
DX: I48.91 Unspecified atrial fibrillation (principal); Z51.81 Encounter for therapeutic drug level monitoring; Z79.01 Long term (current) use of anticoagulants
CPT/HCPCS: 85610

== ENCOUNTER → 2023-01-07 23:43 | Outpatient (CLI) | payer MEDICARE, SELFPAY ==
[2023-01-07 17:25] LABS: Creatinine,Urine Random 138 mg/dL (Not Estab.)
[2023-01-07 17:52] LABS: Microalbumin/Creatinine Ratio 364.2
== END ==
PROVIDERS: PCP Family Medicine; Visit Provider Family Medicine
DX: E11.69 Type 2 diabetes mellitus with other specified complication (principal); Z79.84 Long term (current) use of oral hypoglycemic drugs
CPT/HCPCS: 82043; 82570

== ENCOUNTER → 2023-01-27 14:45 | Outpatient (CLI) | payer MEDICARE, SELFPAY ==
[2023-01-27 16:27] LABS: INR 1.65 (0.9-1.1); Prothrombin Time 17.3 seconds (10.1-12.5)
== END ==
PROVIDERS: PCP Family Medicine; Visit Provider Family Medicine
DX: I48.91 Unspecified atrial fibrillation (principal); Z51.81 Encounter for therapeutic drug level monitoring; Z79.01 Long term (current) use of anticoagulants
CPT/HCPCS: 85610

== ENCOUNTER → 2023-02-10 14:33 | Outpatient (CLI) | payer MEDICARE, SELFPAY ==
[2023-02-10 19:12] LABS: INR 3.35 (0.9-1.1); Prothrombin Time 33.8 seconds (10.1-12.5)
== END ==
PROVIDERS: PCP Family Medicine; Visit Provider Family Medicine
DX: I48.91 Unspecified atrial fibrillation (principal); Z51.81 Encounter for therapeutic drug level monitoring; Z79.01 Long term (current) use of anticoagulants
CPT/HCPCS: 85610

== ENCOUNTER → 2023-03-12 23:38 | Outpatient (CLI) | payer MEDICARE, SELFPAY ==
[2023-03-12 17:13] LABS: INR 3.05 (0.9-1.1); Prothrombin Time 30.9 seconds (10.1-12.5)
== END ==
PROVIDERS: PCP Family Medicine; Visit Provider Family Medicine
DX: I48.91 Unspecified atrial fibrillation (principal); Z51.81 Encounter for therapeutic drug level monitoring; Z79.01 Long term (current) use of anticoagulants
CPT/HCPCS: 85610

== ENCOUNTER → 2023-04-13 23:42 | Outpatient (CLI) | payer MEDICARE, SELFPAY ==
[2023-04-13 17:25] LABS: INR 3.36 (0.9-1.1); Prothrombin Time 33.9 seconds (10.1-12.5)
== END ==
PROVIDERS: PCP Family Medicine; Visit Provider Family Medicine
DX: I48.91 Unspecified atrial fibrillation (principal); Z51.81 Encounter for therapeutic drug level monitoring; Z79.01 Long term (current) use of anticoagulants
CPT/HCPCS: 85610

== ENCOUNTER → 2023-04-26 17:17 | Outpatient (CLI) | payer MEDICARE, SELFPAY ==
[2023-04-26 16:36] LABS: Basophils # 0.1 K/mm3 (0-0.2); Basophils % 0.6 % (0.1-2.0); Eosinophils # 1.7 K/mm3 (0.0-0.4); Eosinophils % 12.2 % (0.1-12.0); Hematocrit 45.4 % (37.0-47.0); Hemoglobin 14.5 g/dL (12.2-16.2); Lymphocytes % 22.1 % (10-50); Mean Corpuscular HGB Conc 31.9 g/dL (31.8-35.4); Mean Corpuscular Hemoglobin 30.8 pg (27.0-31.2); Mean Corpuscular Volume 96.4 fl (81-99); Mean Platelet Volume 11.8 fl (7.4-10.4); Monocytes # 0.8 K/mm3 (0.1-1.0); Monocytes % 5.9 % (1.7-9.3); Neutrophils % 59.2 % (37.0-80.0); Platelet Count 115 K/mm3 (142-424); Red Blood Count 4.71 M/mm3 (4.20-5.40); Red Cell Distribution Width 15.3 % (11.5-17.5); White Blood Count 13.5 K/mm3 (4.8-10.8)
[2023-04-26 16:44] LABS: Alanine Aminotransferase 20 U/L (12-78); Albumin Level 4.1 g/dl (3.5-5.0); Albumin/Globulin Ratio 1.1 (1.1-1.8); Alkaline Phosphatase 128 U/L (38-126); Anion Gap 15.5 mEq/L (5-15); Aspartate Amino Transferase 27 U/L (14-36); Bilirubin,Total 0.3 mg/dl (0.2-1.3); Blood Urea Nitrogen 33 mg/dl (7-17); Calcium 9.6 mg/dl (8.4-10.2); Carbon Dioxide 25 mmol/L (22.0-30.0); Chloride 104 mmol/L (98-107); Chol/HDL Ratio 6.5 (1-3.5); Cholesterol 169 mg/dl (140-200); Estimated Glomerular Filt Rate 25 ml/min (>60); GFR (African American) 30 ML/MIN (>60); Globulin 3.6 g/dL (1.3-3.2); Glucose 124 mg/dl (74-100); HDL Cholesterol 26 mg/dl (40-60); Potassium 4.5 mmoL/L (3.5-5.1); Sodium 140 mmol/L (136-145); Total Protein,Serum 7.7 g/dl (6.3-8.2); Triglycerides 413 mg/dl (30-150)
[2023-04-26 16:54] LABS: Direct LDL Cholesterol 60.18 mg/dL (100-129)
[2023-04-26 17:11] LABS: Hemoglobin A1C 6.4 % (4.0-6.0)
[2023-04-26 17:14] LABS: Thyroid Stimulating Hormone 0.93 uIU/mL (0.465-4.68)
== END ==
PROVIDERS: PCP Family Medicine; Visit Provider Family Medicine
DX: I10 Essential (primary) hypertension (principal); E03.9 Hypothyroidism, unspecified; Z00.00 Encounter for general adult medical examination without abnormal findings; E11.9 Type 2 diabetes mellitus without complications; Z79.84 Long term (current) use of oral hypoglycemic drugs
CPT/HCPCS: 80053; 80061; 83036; 84443; 85025

== ENCOUNTER → 2023-05-13 23:47 | Outpatient (CLI) | payer MEDICARE, SELFPAY ==
[2023-05-13 17:38] LABS: INR 4.15 (0.9-1.1); Prothrombin Time 40.8 seconds (10.1-12.5)
== END ==
PROVIDERS: PCP Family Medicine; Visit Provider Family Medicine
DX: I48.91 Unspecified atrial fibrillation (principal); Z51.81 Encounter for therapeutic drug level monitoring; Z79.01 Long term (current) use of anticoagulants
CPT/HCPCS: 85610

== ENCOUNTER → 2023-05-27 23:32 | Outpatient (CLI) | payer MEDICARE, SELFPAY ==
[2023-05-27 17:02] LABS: INR 2.91 (0.9-1.1); Prothrombin Time 29.3 seconds (10.1-12.5)
== END ==
PROVIDERS: PCP Family Medicine; Visit Provider Family Medicine
DX: I48.91 Unspecified atrial fibrillation (principal); Z51.81 Encounter for therapeutic drug level monitoring; Z79.01 Long term (current) use of anticoagulants
CPT/HCPCS: 85610

== ENCOUNTER → 2023-07-01 16:53 | Outpatient (CLI) | payer MEDICARE, SELFPAY ==
[2023-07-01 17:07] LABS: INR 3.18 (0.9-1.1); Prothrombin Time 31.8 seconds (10.1-12.5)
== END ==
PROVIDERS: PCP Family Medicine; Visit Provider Family Medicine
DX: I48.91 Unspecified atrial fibrillation (principal)
CPT/HCPCS: 85610

== ENCOUNTER → 2023-07-08 09:30 | Outpatient (CLI) | payer MEDICARE, SELFPAY ==
--- NOTE | 2023-07-08 09:39 | XR_ITS ---
FINAL REPORT CLINICAL HISTORY: Left knee pain COMPARISON: None FINDINGS: Three views of the left knee reveal no evidence of fracture or dislocation. There is moderate degenerative change in the medial compartment with joint space narrowing. There are small subchondral cysts in the medial femoral condyle and medial tibial plateau. There is no evidence of joint effusion. No localized soft tissue abnormality is seen. 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 Reviewed, Interpreted and Dictated by John Emanuel III, MD Transcribed by Marii Alejandre Authenticated and [facility]
== END ==
PROVIDERS: PCP Family Medicine; Visit Provider Orthopaedic Surgery
DX: M25.562 Pain in left knee (principal)
CPT/HCPCS: 73562

== ENCOUNTER → 2023-07-28 17:01 | Outpatient (CLI) | payer MEDICARE, SELFPAY ==
[2023-07-28 17:21] LABS: INR 3.06 (0.9-1.1); Prothrombin Time 30.7 seconds (10.1-12.5)
== END ==
PROVIDERS: PCP Family Medicine; Visit Provider Family Medicine
DX: I48.91 Unspecified atrial fibrillation (principal)
CPT/HCPCS: 85610

== ENCOUNTER → 2023-08-24 23:16 | Outpatient (CLI) | payer MEDICARE, SELFPAY ==
[2023-08-24 17:21] LABS: Prothrombin Time 24.5 seconds (10.1-12.5)
[2023-08-24 18:04] LABS: Chloride 102 mmol/L (98-107)
[2023-08-24 18:06] LABS: Potassium 4.5 mmoL/L (3.5-5.1); Sodium 139 mmol/L (136-145)
[2023-08-24 18:07] LABS: Alanine Aminotransferase 21 U/L (12-78); Albumin Level 3.9 g/dl (3.5-5.0); Albumin/Globulin Ratio 1.2 (1.1-1.8); Alkaline Phosphatase 105 U/L (38-126); Anion Gap 9.5 mEq/L (5-15); Aspartate Amino Transferase 30 U/L (14-36); Bilirubin,Total 0.6 mg/dl (0.2-1.3); Blood Urea Nitrogen 28 mg/dl (7-17); Calcium 8.9 mg/dl (8.4-10.2); Carbon Dioxide 32 mmol/L (22.0-30.0); Estimated Glomerular Filt Rate 25 ml/min (>60); GFR (African American) 30 ML/MIN (>60); Globulin 3.3 g/dL (1.3-3.2); Glucose 157 mg/dl (74-100); Total Protein,Serum 7.2 g/dl (6.3-8.2)
[2023-08-24 18:36] LABS: Hemoglobin A1C 6.9 % (4.0-6.0)
== END ==
PROVIDERS: PCP Family Medicine; Visit Provider Family Medicine
DX: I10 Essential (primary) hypertension (principal); I48.91 Unspecified atrial fibrillation; E11.69 Type 2 diabetes mellitus with other specified complication; Z79.4 Long term (current) use of insulin; Z51.81 Encounter for therapeutic drug level monitoring; Z79.01 Long term (current) use of anticoagulants
CPT/HCPCS: 80053; 83036; 85610

== ENCOUNTER 2023-09-23 14:50 | Outpatient (CLI) | payer MEDICARE, SELFPAY ==
[2023-09-23 16:45] LABS: INR 1.62 (0.9-1.1)
== END 2023-09-23 23:59 ==
LOC: LAB.DROPOF 09-24 11:17
PROVIDERS: PCP Family Medicine; Visit Provider Family Medicine
DX: I48.91 Unspecified atrial fibrillation (principal); Z51.81 Encounter for therapeutic drug level monitoring; Z79.01 Long term (current) use of anticoagulants
CPT/HCPCS: 85610

== ENCOUNTER 2023-10-14 20:54 | Outpatient (CLI) | payer MEDICARE, SELFPAY ==
[2023-10-14 18:41] LABS: INR 3.12 (0.9-1.1); Prothrombin Time 31.3 seconds (10.1-12.5)
== END 2023-10-14 23:59 ==
LOC: LAB.DROPOF 20:55
PROVIDERS: PCP Family Medicine; Visit Provider Family Medicine
DX: I48.91 Unspecified atrial fibrillation (principal)
CPT/HCPCS: 85610

== ENCOUNTER 2023-11-18 22:05 | Outpatient (CLI) | payer MEDICARE, SELFPAY ==
[2023-11-18 16:41] LABS: INR 4.08 (0.9-1.1); Prothrombin Time 40.2 seconds (10.1-12.5)
== END 2023-11-18 23:59 ==
LOC: LAB.DROPOF 22:06
PROVIDERS: PCP Family Medicine; Visit Provider Family Medicine
DX: I48.91 Unspecified atrial fibrillation (principal); I10 Essential (primary) hypertension; Z79.899 Other long term (current) drug therapy
CPT/HCPCS: 85610

== ENCOUNTER 2023-12-16 16:35 | Outpatient (CLI) | payer MEDICARE, SELFPAY ==
[2023-12-16 16:20] LABS: Basophils # 0.1 K/mm3 (0-0.2); Basophils % 0.8 % (0.1-2.0); Eosinophils # 0.3 K/mm3 (0.0-0.4); Eosinophils % 2.6 % (0.1-12.0); Hematocrit 44.1 % (37.0-47.0); Hemoglobin 14.4 g/dL (12.2-16.2); Lymphocytes # 2.2 K/mm3 (0.7-4.5); Lymphocytes % 19.6 % (10-50); Mean Corpuscular HGB Conc 32.6 g/dL (31.8-35.4); Mean Corpuscular Hemoglobin 32.1 pg (27.0-31.2); Mean Corpuscular Volume 98.3 fl (81-99); Mean Platelet Volume 9.8 fl (7.4-10.4); Monocytes # 0.6 K/mm3 (0.1-1.0); Monocytes % 5.8 % (1.7-9.3); Neutrophils # 7.9 K/mm3 (1.8-7.8); Neutrophils % 71.3 % (37.0-80.0); Platelet Count 73 K/mm3 (142-424); Red Blood Count 4.49 M/mm3 (4.20-5.40); Red Cell Distribution Width 15.4 % (11.5-17.5); White Blood Count 11.1 K/mm3 (4.8-10.8)
[2023-12-16 16:30] LABS: INR 2.87 (0.9-1.1); Prothrombin Time 28.9 seconds (10.1-12.5)
[2023-12-16 17:50] LABS: Alanine Aminotransferase 35 U/L (12-78); Albumin Level 3.8 g/dl (3.5-5.0); Albumin/Globulin Ratio 1.2 (1.1-1.8); Alkaline Phosphatase 137 U/L (38-126); Anion Gap 11.5 mEq/L (5-15); Aspartate Amino Transferase 34 U/L (14-36); Bilirubin,Total 0.7 mg/dl (0.2-1.3); Blood Urea Nitrogen 29 mg/dl (7-17); Calcium 9.8 mg/dl (8.4-10.2); Carbon Dioxide 24 mmol/L (22.0-30.0); Chloride 104 mmol/L (98-107); Estimated Glomerular Filt Rate 27 ml/min (>60); GFR (African American) 32 ML/MIN (>60); Globulin 3.1 g/dL (1.3-3.2); Glucose 223 mg/dl (74-100); Potassium 4.5 mmoL/L (3.5-5.1); Sodium 135 mmol/L (136-145); Total Protein,Serum 6.9 g/dl (6.3-8.2)
[2023-12-16 18:07] LABS: Hemoglobin A1C 7.1 % (4.0-6.0)
[2023-12-16 18:21] LABS: Thyroid Stimulating Hormone 0.95 uIU/mL (0.465-4.68)
== END 2023-12-16 23:59 ==
LOC: LAB.DROPOF 16:36
PROVIDERS: PCP Family Medicine; Visit Provider Family Medicine
DX: I10 Essential (primary) hypertension (principal); E11.69 Type 2 diabetes mellitus with other specified complication; I48.20 Chronic atrial fibrillation, unspecified; R53.83 Other fatigue; I48.91 Unspecified atrial fibrillation; E11.8 Type 2 diabetes mellitus with unspecified complications; Z79.899 Other long term (current) drug therapy
CPT/HCPCS: 80053; 83036; 84443; 85025; 85610

== ENCOUNTER 2024-01-13 18:00 | Outpatient (CLI) | payer MEDICARE, SELFPAY ==
[2024-01-13 17:20] LABS: INR 2.75 (0.9-1.1); Prothrombin Time 27.8 seconds (10.1-12.5)
== END 2024-01-13 23:59 | disposition home or self-care (01) ==
LOC: LAB.DROPOF 01-17 08:32
PROVIDERS: PCP Family Medicine; Visit Provider Family Medicine
DX: I48.20 Chronic atrial fibrillation, unspecified (principal); Z51.81 Encounter for therapeutic drug level monitoring; Z79.01 Long term (current) use of anticoagulants
CPT/HCPCS: 85610

== ENCOUNTER 2024-02-16 09:34 | Outpatient (CLI) | payer MEDICARE, SELFPAY ==
[2024-02-16 16:54] LABS: INR 3.24 (0.9-1.1); Prothrombin Time 32.4 seconds (10.1-12.5)
== END 2024-02-16 23:59 | disposition home or self-care (01) ==
LOC: LAB.DROPOF 02-18 09:37
PROVIDERS: PCP Family Medicine; Visit Provider Family Medicine
DX: I48.20 Chronic atrial fibrillation, unspecified (principal); Z51.81 Encounter for therapeutic drug level monitoring; Z79.01 Long term (current) use of anticoagulants
CPT/HCPCS: 85610

== ENCOUNTER 2024-05-09 16:48 | Outpatient (CLI) | payer MEDICARE, SELFPAY ==
[2024-05-09 18:01] LABS: Basophils # 0.1 K/mm3 (0-0.2); Basophils % 0.9 % (0.1-2.0); Eosinophils # 0.2 K/mm3 (0.0-0.4); Eosinophils % 2.2 % (0.1-12.0); Hematocrit 47.1 % (37.0-47.0); Hemoglobin 14.4 g/dL (12.2-16.2); Lymphocytes # 2.5 K/mm3 (0.7-4.5); Lymphocytes % 25.2 % (10-50); Mean Corpuscular HGB Conc 30.6 g/dL (31.8-35.4); Mean Corpuscular Hemoglobin 30.8 pg (27.0-31.2); Mean Corpuscular Volume 100.7 fl (81-99); Mean Platelet Volume 12.2 fl (7.4-10.4); Monocytes # 0.6 K/mm3 (0.1-1.0); Neutrophils # 6.6 K/mm3 (1.8-7.8); Neutrophils % 65.6 % (37.0-80.0); Platelet Count 82 K/mm3 (142-424); Red Blood Count 4.68 M/mm3 (4.20-5.40); Red Cell Distribution Width 15.7 % (11.5-17.5)
[2024-05-09 18:53] LABS: Hemoglobin A1C 7.2 % (4.0-6.0)
[2024-05-09 19:32] LABS: Alanine Aminotransferase 30 U/L (12-78); Albumin Level 3.6 g/dl (3.5-5.0); Alkaline Phosphatase 111 U/L (38-126); Anion Gap 9.3 mEq/L (5-15); Aspartate Amino Transferase 34 U/L (14-36); Bilirubin,Total 0.9 mg/dl (0.2-1.3); Blood Urea Nitrogen 26 mg/dl (7-17); Calcium 9.4 mg/dl (8.4-10.2); Carbon Dioxide 27 mmol/L (22.0-30.0); Chloride 106 mmol/L (98-107); Estimated Glomerular Filt Rate 26 ml/min (>60); GFR (African American) 32 ML/MIN (>60); Globulin 3.6 g/dL (1.3-3.2); Glucose 160 mg/dl (74-100); Potassium 4.3 mmoL/L (3.5-5.1); Sodium 138 mmol/L (136-145); Total Protein,Serum 7.2 g/dl (6.3-8.2)
[2024-05-10 06:35] LABS: INR 2.32 (0.9-1.1); Prothrombin Time 23.9 seconds (10.1-12.5)
== END 2024-05-09 23:59 | disposition home or self-care (01) ==
LOC: LAB.DROPOF 05-10 16:49
PROVIDERS: PCP Family Medicine; Visit Provider Family Medicine
DX: E11.69 Type 2 diabetes mellitus with other specified complication; I48.91 Unspecified atrial fibrillation; Z79.01 Long term (current) use of anticoagulants; Z79.84 Long term (current) use of oral hypoglycemic drugs; Z79.4 Long term (current) use of insulin
CPT/HCPCS: 80050; 80053; 83036; 84443; 85025; 85610

== ENCOUNTER 2024-06-12 14:00 | Outpatient (CLI) | payer MEDICARE, SELFPAY ==
[2024-06-12 16:48] LABS: INR 2.33 (0.9-1.1)
== END 2024-06-12 23:59 | disposition home or self-care (01) ==
LOC: LAB.DROPOF 06-13 08:38
PROVIDERS: PCP Family Medicine; Visit Provider Family Medicine
DX: I48.91 Unspecified atrial fibrillation (principal)
CPT/HCPCS: 85610

== ENCOUNTER 2024-07-13 14:10 | Outpatient (CLI) | payer MEDICARE, SELFPAY ==
[2024-07-13 16:50] LABS: INR 2.82 (0.9-1.1); Prothrombin Time 28.5 seconds (10.1-12.5)
== END 2024-07-13 23:59 | disposition home or self-care (01) ==
LOC: LAB.DROPOF 07-14 12:36
PROVIDERS: PCP Family Medicine; Visit Provider Family Medicine
DX: I48.91 Unspecified atrial fibrillation (principal)
CPT/HCPCS: 85610